=== PATIENT | male | born 1945 | race Caucasian/White ===

== ENCOUNTER → 2018-02-28 09:43 | Outpatient (CLI) | payer MEDICARE, SELFPAY ==
[2018-02-28 11:06] LABS: Thyroid Stim Hormone (TSH) 1.27 uIU/mL (0.358-3.74)
== END ==
PROVIDERS: Family Provider Family Medicine; PCP Family Medicine; Visit Provider Internal Medicine Cardiovascular Disease
DX: I10 Essential (primary) hypertension (principal)
CPT/HCPCS: 36415; 84443

== ENCOUNTER 2019-08-01 15:47 | Emergency (ER) | payer MEDICARE, SELFPAY ==
[2019-03-27 08:47] VITALS: BMI 43.1
[2019-08-01 15:48] VITALS: BP 181/82; PULSE 79; RESP 18; TEMP 36.3; O2SAT 97; BMI 41.2
--- NOTE | 2019-08-01 16:03 | RAD_ITS ---
STUDY: X-RAY - RIGHT KNEE REASON FOR EXAM: Male, 74 years old. Post traumatic pain TECHNIQUE: 4 view(s) of the knee. COMPARISON: None. FINDINGS: Stable appearance to knee prosthesis. No evidence for acute fracture or dislocation. Prepatellar soft tissue swelling is noted as well as a small suprapatellar bursal effusion RAD/Knee 4 or More Views IMPRESSION: Stable appearance to knee prosthesis without evidence for acute fracture Electronically Signed: David Epperson MD at 16:32 EDT , Service support ,
--- NOTE | 2019-08-01 16:07 | ED.DCSUM_ITS ---
- ER Visit Summary Date of Service: 08/01/19 Chief Complaint: Right knee injury History of Present Illness: The patient is a 74 M past male history of A. fib and prior prostate cancer. Bilateral knee replacements. 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 He was out mending some fence when his left foot slipped in the mud causing him to twist his right knee and go down to the ground. He denies any other injuries. Denies any LOC. Planing of pain to his right knee and unable to bend it. Did not hit his head. He is not on blood thinners. He did not hit his head. Physical Examination: Older male no acute distress vital signs stable afebrile. HEENT exam unremarkable. Atraumatic. Neck nontender. Lungs clear to auscultation bilaterally. Heart regular rhythm no murmur. Abdomen soft nontender normal bowel sounds no peritoneal signs. Pelvic girdle intact. Left lower extremity both upper extremities are nontender normal range of motion no deformity. Neurovascular intact. His right hip, right ankle and foot are nontender neurovascular intact with normal dorsi plantar flexion. Normal touch sensation. His right knee appears to be deformed. He is unable to flex his right knee due to pain. There is not significant swelling. There is no significant effusion. Neurologically is awake and alert. Test Results: Right knee x-ray 4 views read by myself and radiologist shows no acute ab normality. No fracture. No dislocation. Emergency Department Course and Treatment: Patient may either have a dislocated patella or knee. X-rays are being obtained. At this time he does not want anything for pain. Repeat exam patient is doing well at 1650. He has better range movement now to his right knee. Is not nearly as tender. He still has some swelling of the soft tissue superior and lateral to the patella. The patella appears to be in the appropriate position. He feels much better. Treatment Plan: Ice. Elevate. Anti-inflammatories. He has appointment to see his primary care physician next Tuesday they will determine at that time if he is not improving he may need an MRI but if it continues to get better they do conservative therapy. Disposition: Discharge Impression: Acute right knee soft tissue injury (sprain) This note was generated with [employer] software. It may contain incorrect words, spelling, and punctuation that were not noted in review of the chart prior to signing ED Disposition - Plan for ED Patient: Referrals: Jameson Hanson MD [Primary Care Provider] -
--- NOTE | 2019-08-01 16:58 | ED.DEP ---
ED Disposition - Plan for ED Patient: Disposition: Home or Assisted Living Instructions: Knee Sprain Referrals: Jameson Hanson MD [Primary Care Provider] - Keep Juan appointment Additional Instructions: Ice and elevate right knee. Motrin for pain and inflammation. Follow-up with your doctor the scheduled appointment. If this is not improving you may need an MRI but is not a continues to get better with less pain and swelling. This may completely resolve on its own. You have no fracture or dislocation at this time.
== END 2019-08-01 17:42 | disposition home or self-care (01) ==
PROVIDERS: Emergency Provider Emergency Medicine; Family Provider Family Medicine; PCP Family Medicine
DX: S83.91XA Sprain of unspecified site of right knee, initial encounter (principal); W01.0XXA Fall on same level from slipping, tripping and stumbling without subsequent striking against object, initial encounter; Y93.9 Activity, unspecified; Y92.9 Unspecified place or not applicable; I48.91 Unspecified atrial fibrillation; Z85.46 Personal history of malignant neoplasm of prostate; Z96.653 Presence of artificial knee joint, bilateral; Z79.82 Long term (current) use of aspirin; Z79.899 Other long term (current) drug therapy
CPT/HCPCS: 73564; 99282

== ENCOUNTER → 2020-09-01 13:24 | Outpatient (CLI) | payer MEDICARE, SELFPAY ==
[2020-03-25 07:45] VITALS: BMI 38.7
--- NOTE | 2020-09-01 13:27 | ECHOCS_ITS ---
Reason For Study: AFib Procedure This was a 2D Doppler, Color Flow transthoracic echocardiogram. Technically difficult study due to patients body habitus. Contrast injection was performed. Exam performed in department. Left Ventricle Normal LV size. Severe concentric left ventricular hypertrophy. Left ventricular systolic function is normal. The estimated ejection fraction is 65 %. No regional wall motion abnormalities noted. Right Ventricle Normal RV size. Normal systolic function. Atria Normal left atrium. Normal right atrium. Mitral Valve Normal mitral valve. Tricuspid Valve The tricuspid valve is not well visualized. Aortic Valve The aortic valve is not well visualized. Pulmonic Valve The pulmonic valve is not well visualized. Great Vessels Normal aortic root. Pericardium/Pleural No pericardial effusion. Medication 22 gauge I.V. with prn adaptor inserted into left arm. Diluted definity 2ml given slow IV push to enhance endocardial definition. MMode/2D Measurements & Calculations LVIDd: 5.5 cm IVSd: 1.8 cm LAV(MOD-sp4): 57.3 ml LVIDs: 3.7 cm LVPWd: 1.7 cm FS: 33.0 % LA A4 area: 19.7 cm2 RA A4 area: 15.3 cm2 Time Measurements MV dec time: 0.33 sec Doppler Measurements & Calculations MV E max bryce: 58.0 cm/sec Lat Peak E' Bryce: 7.4 cm/sec Med Peak E' Bryce: 6.8 cm/sec MV A max bryce: 76.3 cm/sec E/E' lat: 7.9 E/E' med: 8.6 MV E/A: 0.76 MV V2 max: 98.2 cm/sec MV P1/2t max bryce: 77.0 cm/sec Ao V2 max: 152.2 cm/sec MV max P.9 mmHg MV P1/2t: 71.4 msec Ao max P.3 mmHg MV V2 mean: 46.2 cm/sec MV dec slope: 316.2 cm/sec2 MV mean P.1 mmHg MV V2 VTI: 26.5 cm MVA(P1/2t): 3.1 cm2 LV V1 max: 115.0 cm/sec PA V2 max: 85.7 cm/sec LV V1 max P.3 mmHg Interpretation Summary Normal LV size. Left ventricular systolic function is normal. The estimated ejection fraction is 65 %. Severe concentric left ventricular hypertrophy. Contrast injection was performed. Ordering Physician: Martin Gill Referring Physician: Jameson Hanson Performed By: Rayo Alonso RCS
== END ==
PROVIDERS: PCP Family Medicine; Referring Provider Internal Medicine Pulmonary Disease; Visit Provider Internal Medicine Pulmonary Disease
DX: G47.33 Obstructive sleep apnea (adult) (pediatric) (principal); I48.91 Unspecified atrial fibrillation
CPT/HCPCS: 93306; Q9957; A4216; C8929

== ENCOUNTER → 2021-02-12 15:14 | Outpatient (CLI) | payer MEDICARE, SELFPAY ==
[2021-01-16 08:20] VITALS: BMI 42.0
--- NOTE | 2021-02-12 15:18 | RAD_ITS ---
STUDY: X-RAY CHEST REASON FOR EXAM: Male, 75 years old. DYSPNEA TECHNIQUE: 1 view COMPARISON: None. FINDINGS: Minimal transverse areas of linear density in the left lung base and mid left lung. Negative for major consolidation or other infiltrates. Negative for substantial pleural effusion. Normal size heart. Normal mediastinum and shanice. Normal visualized pulmonary arteries. There is atherosclerotic calcification of the aortic arch with tortuosity. There are diffuse degenerative changes of the visualized thoracic spine. Normal visualized ribs, clavicles, and shoulders. There is no demonstrated abnormality of the visualized soft tissue structures of the upper abdomen. RAD/Chest PA and Lateral IMPRESSION: Minimal transverse linear opacities in the left mid lung and left lung base consistent with platelike atelectasis or fibrotic changes. Negative for other acute cardiopulmonary findings. Electronically Signed: Devi Moody MD at 15:58 EDT , Service support ,
== END ==
PROVIDERS: PCP Family Medicine; Referring Provider Internal Medicine Pulmonary Disease; Visit Provider Internal Medicine Pulmonary Disease
DX: R06.00 Dyspnea, unspecified (principal)
CPT/HCPCS: 71046

== ENCOUNTER → 2023-12-16 | Outpatient (CLI) | payer MEDICARE, SELFPAY ==
--- NOTE | 2023-12-16 16:10 | RAD_ITS ---
INDICATION: SOB EXAMINATION/TECHNIQUE: X-RAY - XR Chest 2 Views COMPARISON: 02/12/2021 FINDINGS: Streaky opacities in the bilateral lung bases. Tortuous and calcified thoracic aorta. The heart is borderline enlarged. No pleural effusion or pneumothorax. Degenerative changes of the thoracic spine. RAD/Chest PA and Lateral IMPRESSION: Streaky bibasilar opacities may represent atelectasis versus infection. Electronically Signed: Andrzej Palacios MD at 16:43 EST ,
== END | disposition home or self-care (01) ==
LOC: MTRAD 16:09
PROVIDERS: PCP Family Medicine; Referring Provider Internal Medicine Pulmonary Disease; Visit Provider Internal Medicine Pulmonary Disease
DX: R06.02 Shortness of breath (principal)
CPT/HCPCS: 71046

== ENCOUNTER → 2024-01-05 | Outpatient (CLI) | payer MEDICARE, SELFPAY ==
--- OUTSIDE RECORDS SUMMARY | 2024-01-05 07:25 | XMS RPT_ITS | CCD ---
Author Name Unknown Address [address] [place] [address] Organization [facility] Care Team Providers Care Welder/Fitter Name Role Phone Marie Ruiz Unavailable Unavailable Marie Ruiz Unavailable Unavailable MiaTye castanoril S Unavailable Jameson Martinez MD Primary Care Provider Martin Costa Unavailable Harshil Roldan Unavailable [phone] Ottoniel Sam Unavailable JAMESON MARTINEZ MD Primary Care Physician DR FELICITY NICHOLAS MD Attending UnavailJAMESON Landers MD Primary Care Unavailable DR LINUS HUNTLEY DO Attending Unavailable JAMESON MARTINEZ MD Primary Care Unavailable JAMESON MARTINEZ MD Primary Care Unavailable JAMESON MARTINEZ MD Attending Unavailable JAMESON MARTINEZ MD Attending Unavailable JAMESON MARTINEZ MD Primary Care Unavailable JAMESON MARTINEZ MD Primary Care Unavailable JAMESON MARTINEZ MD Attending Unavailable Allergies Allergy Classification Reported Allergen(s) Allergy Type Date of Onset Reaction(s) Facility (14 sources) doxycycline; Translations: [DORYX] Drug Allergy 6 rash [facility] Work Phone: (4 sources) Sulfonamides (Antibiotic); Translations: [SULFA] allergy to substance 6 rash [facility] Work Phone: (9 sources) Sulfonamides (Antibiotic); Translations: [sulfa drugs] Drug Allergy 6 Rash [facility] Work Phone: (2 sources) Sulfonamides (Antibiotic); Translations: [sulfa drugs] Drug allergy Rash [facility] NEGATED: Highlighted row has been ruled out! (2 sources) Observed no known allergies at [facility] No Known Allergies 7 propensity to adverse reactions [facility] Work Phone: Medications Current Medications Medication Drug Class(es) Dates Sig (Normalized) Sig (Original) amoxicillin 875 mg / clavulanate 125 mg oral tablet (2 sources) Penicillin-class Antibacterial Start: 04-13-2023 End: 04-23-2023 take 1 tablet by mouth every twelve hours amoxicillin-clav ulanate 875 mg-125 mg oral tablet 1 tab(s), Oral, q12h, X 10 day(s), # 20 tab(s), 0 Refill(s), 04/23/23 10:08:00 EDT, Pharmacy: [facility]/pharmacy #[id number], Type 2 diabetes mellitus Prostate cancer, 181, cm, 04/13/23 9:16:00 EDT, Height, 153.8 Start Date: 04/13/23 Stop Date: 04/23/23 Status: Ordered aspirin 81 mg delayed release oral tablet (13 sources) Platelet Aggregation Inhibitor, Nonsteroidal Anti-inflammatory Drug Start: 06-13-2019 aspirin 81 mg oral delayed release tablet Dose : 81 mg = 1 tab(s), Oral, qDay, # 30 tab(s), 0 Refill(s) Start Date: 06/13/19 Status: Ordered Completed/Discontinued Medications Medication Drug Class(es) Dates Sig (Normalized) Sig (Original) [id number] actuat albuterol 0.09 mg/actuat metered dose inhaler (1 source) beta2-Adrenergic Agonist take 2 puff(s) by inhalation every six hours as needed for wheezing albuterol HFA (PROVENTIL HFA) 90 mcg/actuation inhaler Inhale 2 Puffs as instructed every 6 hours as needed for wheezing/shortness of breath. 0 Active Problems Active Problems Problem Classification Problem Date Documented Date Episodic/Chronic Cancer of prostate (15 sources) Malignant tumor of prostate; Translations: [Malignant neoplasm of prostate] Onset: 12-01-2016 12-01-2016 Chronic Cardiac dysrhythmias (20 sources) Unspecified atrial flutter; Translations: [Permanent atrial fibrillation ] Onset: 08-03-2016 12-01-2016 Chronic Cardiac dysrhythmias (13 sources) Palpitations; Translations: [Palpitations] Onset: 07-02-2021 Episodic Diabetes mellitus without complication (10 sources) Type 2 diabetes mellitus; Translations: [Type 2 diabetes mellitus without complications] Onset: 04-13-2023 10-16-2021 Chronic Disorders of lipid metabolism (15 sources) Hyperlipidemia; Translations: [Hyperlipidemia, unspecified] Onset: 08-04-2016 08-04-2016 Chronic Essential hypertension (14 sources) Hypertensive disorder; Translations: [Benign hypertension] Onset: 08-03-2016 08-03-2016 Chronic Hyperplasia of prostate (11 sources) Benign prostatic hyperplasia; Translations: [Benign prostatic hyperplasia without lower urinary tract symptoms] Onset: 07-02-2021 07-02-2021 Chronic Other and ill-defined heart disease (2 sources) Left ventricular hypertrophy; Translations: [Cardiomegaly] Chronic Other hereditary and degenerative nervous system conditions (11 sources) Restless legs; Translations: [Restless legs syndrome] Onset: 07-02-2021 07-02-2021 Chronic Other nutritional; endocrine; and metabolic disorders (2 sources) Body mass index (BMI) 40.0-44.9, adult; Translations: [Body mass index (BMI) 40.0-44.9, adult] Onset: 02-08-2017 02-08-2017 Chronic Other nutritional; endocrine; and metabolic disorders (2 sources) Body mass index 40+ - severely obese; Translations: [Morbid (severe) obesity due to excess calories] Onset: 07-02-2021 Chronic Other nutritional; endocrine; and metabolic disorders (2 sources) Morbid obesity 07-11-2023 Chronic Other upper respiratory disease (11 sources) Allergic rhinitis; Translations: [Allergic rhinitis, unspecified] Onset: 07-02-2021 07-02-2021 Chronic Residual codes; unclassified (2 sources) Other specified personal risk factors, not elsewhere classified; Translations: [Other specified personal history presenting hazards to health] Episodic Residual codes; unclassified (2 sources) At risk of hemorrhage; Translations: [Other specified personal risk factors, not elsewhere classified] Episodic Skin and subcutaneous tissue infections (4 sources) Cellulitis of lower limb 04-13-2023 Episodic Spondylosis; intervertebral disc disorders; other back problems (1 source) Degeneration of lumbar intervertebral disc; Translations: [Other intervertebral disc degeneration, lumbar region] Chronic Spondylosis; intervertebral disc disorders; other back problems (16 sources) Lumbago with sciatica; Translations: [Backache] Onset: 10-05-2023 08-07-2019 Episodic Unclassified (2 sources) Long-term drug therapy; Translations: [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 inspector (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) drug therapy] Onset: 08-04-2016 08-04-2016 Past or Other Problems Problem Classification Problem Date Documented Date Episodic/Chronic Conditions associated with dizziness or vertigo (8 sources) Lightheadedness; Translations: [Dizziness and giddiness] Onset: 08-03-2016 Resolved: 08-04-2016 08-04-2016 Episodic Other screening for suspected conditions (not mental disorders or infectious disease) (2 sources) Electrocardiogram abnormal; Translations: [Abnormal electrocardiogram [ECG] [EKG]] Onset: 08-05-2016 08-05-2016 Episodic Results Test Name Value Interpretation Reference Range Facil ity Vital Signs Date Time Vital Sign Value Performing Clinician Facility 07-11-2023 08:55-0400 Diastolic Blood Pressure Non-Invasive [address] FELICITY NICHOLAS MD [facility] 07-11-2023 08:55-0400 Heart rate 63 /min DR FELICITY NICHOLAS MD [facility] 07-11-2023 08:55-0400 Respiratory rate 19 /min DR FELICITY NICHOLAS MD [facility] 07-11-2023 08:55-0400 Systolic Blood Pressure Non-Invasive [address] FELICITY NICHOLAS MD [facility] 07-11-2023 08:39-0400 Body temperature 96.98 [degF] DR FELICITY NICHOLAS MD [facility] 07-11-2023 08:39-0400 Diastolic Blood Pressure Non-Invasive [address] FELICITY NICHOLAS MD [facility] 07-11-2023 08:39-0400 Heart rate 60 /min DR FELICITY NICHOLAS MD [facility] 07-11-2023 08:39-0400 Respiratory rate 16 /min DR FELICITY NCIHOLAS MD [facility] 07-11-2023 08:39-0400 Systolic Blood Pressure Non-Invasive [address] FELICITY NICHOLAS MD [facility] 07-11-2023 08:35-0400 Heart rate 61 /min DR FELICITY NICHOLAS MD [facility] 07-11-2023 08:35-0400 Respiratory Rate - Anes 14 br/min DR FELICITY NICHOLAS MD [facility] 07-11-2023 08:30-0400 Diastolic Blood Pressure Non-Invasive [address] FELICITY NICHOLAS MD [facility] 07-11-2023 08:30-0400 Respiratory Rate - Anes 28 br/min DR FELICITY NICHOLAS MD [facility] 07-11-2023 08:30-0400 Systolic Blood Pressure Non-Invasive [address] FELICITY NICHOLAS MD [facility] 07-11-2023 08:25-0400 Respiratory Rate - Anes 22 br/min DR FELICITY NICHOLAS MD [facility] 07-11-2023 07:27-0400 Body height 180.[address] FELICITY NICHOLAS MD [facility] 07-11-2023 07:27-0400 Body temperature 97.52 [degF] DR FELICITY NICHOLAS MD [facility] 07-11-2023 07:27-0400 Body weight 154.[address] FELICITY NICHOLAS MD [facility] 07-11-2023 07:27-0400 Heart rate 57 /min DR FELICITY NICHOLAS MD [facility] 07-11-2023 07:27-0400 Respiratory rate 18 /min DR FELICITY NICHOLAS MD [facility] 04-19-2023 22:30-0400 Diastolic Blood Pressure Non-Invasive [address] LINUS HUNTLEY DO [facility] 04-19-2023 22:30-0400 Heart rate 65 /min DR LINUS HUNTLEY DO [facility] 04-19-2023 22:30-0400 Respiratory rate 16 /min DR LINUS HUNTLEY DO [facility] 04-19-2023 22:30-0400 Systolic Blood Pressure Non-Invasive [address] LINUS HUNTLEY DO [facility] 04-19-2023 18:35-0400 Body temperature 98.6 [degF] DR LINUS HUNTLEY DO [facility] 04-19-2023 18:35-0400 Body weight 155.[address] LINUS HUNTLEY DO [facility] 04-19-2023 18:35-0400 Diastolic Blood Pressure Non-Invasive [address] LINUS HUNTLEY DO [facility] 04-19-2023 18:35-0400 Heart rate 69 /min DR LINUS HUNTLEY DO [facility] 04-19-2023 18:35-0400 Respiratory rate 16 /min DR LINUS HUNTLEY DO [facility] 04-19-2023 18:35-0400 Systolic Blood Pressure Non-Invasive [address] LINUS HUNTLEY DO [facility] 07-02-2021 14:15-0400 Body height 185.4 cm Martin Tovar MD Work Phone: [facility] 07-02-2021 14:15-0400 Body weight 157.4 kg Martin Tovar MD Work Phone: [facility] 07-02-2021 14:15-0400 Diastolic blood pressure 72 mm[Hg] Martin Tovar MD Work Phone: [facility] 07-02-2021 14:15-0400 Heart rate 64 /min Martin Tovar MD Work Phone: [facility] 07-02-2021 14:15-0400 SaO2% (BldA) [Mass fraction] 94 % Martin Tovar MD Work Phone: [facility] 07-02-2021 14:15-0400 Systolic blood pressure 142 mm[Hg] Martin Tovar MD Work Phone: [facility] 08-22-2017 09:51-0400 BMI (Body Mass Index) 44.07 kg/m2 Marie Landinby [facility] Work Phone: 08-22-2017 09:51-0400 BP Diastolic 68 mm[Hg] [facility] Work Phone: 08-22-2017 09:51-0400 BP Systolic 126 mm[Hg] [facility] Work Phone: 08-22-2017 09:51-0400 Height 182.88 cm [facility] Work Phone: 08-22-2017 09:51-0400 Pulse (Heart Rate) 64 /min Marieamanda [facility] Work Phone: 08-22-2017 09:51-0400 Respiratory Rate 18 /min Marie Schaffer Work Phone: 08-22-2017 09:51-0400 Weight 147.42 kg [facility] Work Phone: 12-07-2016 12:08-0500 BSA (Body Surface Area) 2.61 m2 Marie Schaffer Work Phone: 12-07-2016 10:44-0500 Heart rate 71 /min Marie [facility] Work Phone: Encounters Encounter Date Encounter Type Care Provider Facility Start: 10-05-2023 End: 10-10-2023 ambulatory JAMESON MARTINEZ MD Facility:[facility] Start: 10-05-2023 End: 10-09-2023 Outreach Lab JAMESON MARTINEZ MD [facility] Start: 07-11-2023 End: 07-11-[address] FELICITY NICHOLAS MD Facility:[facility] Start: 07-11-2023 End: 07-11-[address] FELICITY NICHOLAS MD [facility] Start: 04-19-2023 End: 04-20-2023 Emergency department patient visit DR LINUS HUNTLEY DO Facility:[facility] Start: 04-19-2023 End: 04-19-2023 Emergency department patient visit DR LINUS HUNTLEY DO [facility] Start: 04-13-2023 End: 04-18-2023 ambulatory JAMESON MARTINEZ MD Facility:[facility] Start: 04-13-2023 End: 04-17-2023 Outreach Lab JAMESON MARTINEZ MD [facility] Start: 04-06-2023 End: 04-11-2023 ambulatory JAMESON MARTINEZ MD Facility:[facility] Start: 10-06-2022 End: 10-10-2022 Outreach Lab JAMESON MARTINEZ MD [facility] Start: 08-24-2022 End: 10-12-[address] FELICITY CRAMER DO [facility] Start: 04-05-2022 End: 04-05-2022 Patient encounter procedure JAMESON MARTINEZ MD [facility] Start: 09-28-2021 End: 09-28-2021 Patient encounter procedure JAMESON MARTINEZ MD [facility] Start: 07-02-2021 End: 07-02-2021 Patient encounter procedure Martin Tovar MD Work Phone: [facility] Cardiology [place] Procedures Date Procedure Procedure Detail Performing Clinician Start: 07-02-2021 Ecg routine ecg w/le ast 12 lds w/i&r Martin Tovar MD Work Phone: Start: 08-22-2017 End: 08-22-2017 SAURABH Easley PA-C Work Phone: Start: 08-22-2017 End: 08-22-2017 Follow Up Appt 6 months Shellie garza PA-C Work Phone: Start: 02-08-2017 End: 02-08-2017 Follow Up Appt 6 months Dayami Mae Start: 02-08-2017 End: 02-08-2017 CHI Bellamy MD Start: 12-07-2016 End: 08-15-2017 SAURABH Bellamy MD Start: 12-07-2016 End: 08-15-2017 Ecg routine ecg w/least 12 lds w/i&r Pete Bellamy MD Start: 12-07-2016 End: 12-07-2016 Follow Up Appt 3 months Dayami Mae Start: 12-07-2016 End: 08-15-2017 Follow Up Appt 4 months Dayami Mae Start: 12-07-2016 End: 12-07-2016 MMM Pete Bellamy MD Start: 08-04-2016 End: 08-04-2016 MEDICAL PHYSICS TEACHER Pete Bellamy MD Start: 08-04-2016 End: 08-04-2016 Ecg routine ecg w/least 12 lds w/i&r Pete Bellamy MD Start: 08-04-2016 End: 09-02-2016 Echocardiography Pete Bellamy MD Start: 08-04-2016 End: 08-04-2016 Follow Up Appt 6 months Dayami Mae Start: 04-01-2014 History of right tot al knee replacement DR HARSHIL ROLDAN MD Plan of Treatment Date Care Activity Detail Author Start: 07-01-2021 Influenza vaccination INFLUENZA (#1) [facility] Start: 02-28-2018 End: 02-28-2018 Appointment Appointment [facility] Work Phone: Start: 08-22-2017 End: 08-22-2017 MEDICAL PHYSICS TEACHER MEDICAL PHYSICS TEACHER [facility] Work Phone: Start: 08-22-2017 End: 08-22-2017 Follow Up Appt 6 months Follow Up Appt 6 months [facility] Work Phone: Start: 08-22-2017 End: 08-22-2017 Appointment Appointment [facility] Work Phone: Start: 02-08-2017 End: 02-08-2017 Follow Up Appt 6 months Follow Up Appt 6 months [facility] Work Phone: Start: 02-08-2017 End: 02-08-2017 MMM MMM [facility] Work Phone: Start: 12-07-2016 End: 08-15-2017 MEDICAL PHYSICS TEACHER MEDICAL PHYSICS TEACHER [facility] Work Phone: Start: 12-07-2016 End: 08-15-2017 Ecg routine ecg w/least 12 lds w/i&r EKG (In office) [facility] Work Phone: Start: 12-07-2016 End: 12-07-2016 Follow Up Appt 3 months Follow Up Appt 3 months [facility] Work Phone: Start: 12-07-2016 End: 08-15-2017 Follow Up Appt 4 months Follow Up Appt 4 months [facility] Work Phone: Start: 12-07-2016 End: 12-07-2016 MMM MMM [facility] Work Phone: Start: 08-04-2016 End: 08-04-2016 MEDICAL PHYSICS TEACHER MEDICAL PHYSICS TEACHER [facility] Work Phone: Start: 08-04-2016 End: 08-04-2016 Ecg routine ecg w/least 12 lds w/i&r EKG (In office) [facility] Work Phone: Start: 08-04-2016 End: 08-04-2016 Echocardiography Echocardiogram (complete) [facility] Work Phone: Start: 08-04-2016 End: 08-04-2016 Follow Up Appt 6 months Follow Up Appt 6 months [facility] Work Phone: Start: 07-22-2015 Urine microalbumin profile DTAP,TDAP,TD (2 - Tdap) [facility] Start: 2009 ADVANCE DIRECTIVE DISCUSSION ADVANCE DIRECTIVE DISCUSSION [facility] Start: 1994 SHINGRIX VACCINE (1 of 2) SHINGRIX VACCINE (1 of 2) [facility] Start: 1989 DIABETES SCREEN DIABETES SCREEN [facility] Start: 1962 HEPATITIS C SCREENING HEPATITIS C SCREENING [facility] Start: 1956 Adult depression screening assessment DEPRESSION SCREENING [facility] Immunizations Immunization Date Immunization Notes Care Provider Fa cility 10-21-2021 COVID-19, mRNA, LNP- S, PF, 100 mcg or 50 mcg dose; Translations: [Moderna COVID-19 Vaccine] JAMESON MARTINEZ MD [facility] 01-05-2021 COVID-19 vaccine (MODERNA); Translations: [Moderna COVID-19 Vaccine] Martin Tovar MD Work Phone: [facility] 12-08-2020 COVID-19 vaccine (MODERNA) Martin Tovar MD Work Phone: [facility] 05-10-2017 pneumococcal conjuga te vaccine, 13 valent Martin Tovar MD Work Phone: [facility] 03-31-2012 pneumococcal polysaccharide vaccine, 23 valent Martin Tovar MD Work Phone: [facility] 01-14-2006 pneumococcal polysaccharide vaccine, 23 valent Martin Tovar MD Work Phone: [facility] 07-22-2005 diphtheria and tetan us toxoids, adsorbed for pediatric use Martin Tovar MD Work Phone: [facility] Payers Date Payer Category Payer Private Health Insurance [id number] 2020 Medicare AETNA MEDICARE A ETNA MEDICARE PPO [id number] 2020-Present PPO [id number] 1944 Unknown [id number] 1945 Unknown [id number] 1944 Unknown [id number] 1945 Unknown [id number] 1945 Unknown [id number] Social History Date Type Detail Facility Start: 08-07-2019 End: 07-02-2021 Tobacco smoking status NHIS Never smoker [facility] Start: 07-02-2021 Tobacco use and exposure Never used [facility] Start: 07-02-2021 Alcohol intake Lifetime non-d ritika (finding) [facility] Start: 06-19-2021 History SDOH Alcohol Frequency 1 [facility] Start: 1945 [facility]igned At [facility] Exposure to SARS-CoV -2 (event) Not sure [facility] Sex Assigned At Male [facility] Functional Status Date Assessment Result Facility 07-11-2023 Functional Status Repositioned back [facility] 07-11-2023 Functional Status Maintained [facility] 04-19-2023 Functional Status Ambulating in delvalle, Ambulating in room, Awake, Bathroom privileges [facility] 04-19-2023 Functional Status Standard Safet y ID band on, Allergy Band on, Call device within reach, Bed in low position, Wheels locked, Upper/Half-Length side-rails up, personal items within reach, Visitor at bedside [facility] Mental Status Date Assessment Result Facility 07-11-2023 Mental Status Oriented x 4 [facility] 07-11-2023 Mental Status [facility] 04-19-2023 Mental Status Orientation Oriented x 4 [facility] 04-19-2023 Mental Status [facility] Clinical Notes 07-02-2021 to 07-11-2023 Patient Martin Hudson MD - 07/02/2021 2:20 PM Perla Olmedo MA - 07/02/2021 2:18 PM EDTLaboratory Note Date & Type Note Facility 07-11-2023 Hospital Discharge instructions Patient Education 07/11/2023 09:06:09 9 - AO Minor Esophagogastroduodenoscopy (01/11)(CUSTOM) Esophagogastroduodenoscopy This is an endoscopic procedure (a procedure that uses a device like a flexible telescope) that allows your caregiver to view the upper stomach and small bowel. This test allows your caregiver to look at the esophagus. The esophagus carries food from your mouth to your stomach. They can also look at your duodenum. This is the first part of the small intestine that attaches to the stomach. This test is used to detect problems in the bowel such as ulcers and inflammation. MEANING OF TEST Your caregiver will go over the test results with you and discuss the importance and meaning of your results, as well as treatment options and the need for additional tests if necessary. OBTAINING THE TEST RESULTS Your caregiver s office will call you with the results of the test. POST SEDATION INSTRUCTIONS Rest at home today. Since your coordination may be impaired, be cautious on stairways, do not drive any vehicle or operate any heavy machinery, or use any sharp instruments for the remainder of the day. Do not drink any alcoholic beverages or make any major decisions for 24 hours. POST PROCEDURE INSTRUCTIONS Progress slowly with full liquids then resume previous diet and medications. Belching or passing of gas is to be expected. Notify the physician if you have severe chest pain, fever, or if difficulty when swallowing persists. 01/08/14 Custom 07/11/2023 09:05:07 Esophageal Dilatation Esophageal Dilatation Esophageal dilatation, also called esophageal dilation, is a procedure to widen or open (dilate) a blocked or narrowed part of the esophagus. The esophagus is the part of the body that moves food and liquid from the mouth to the stomach. You may need this procedure if: You have a buildup of scar tissue in your esophagus that makes it difficult, painful, or impossible to swallow. This can be caused by gastroesophageal reflux disease (GERD). You have cancer of the esophagus. There is a problem with how food moves through your esophagus. In some cases, you may need this procedure repeated at a later time to dilate the esophagus gradually. Tell a health care provider about: Any allergies you have. All medicines you are taking, including vitamins, herbs, eye drops, creams, and [id number] medicines. Any problems you or family members have had with anesthetic medicines. Any blood disorders you have. Any surgeries you have had. Any medical conditions you have. Any antibiotic medicines you are required to take before dental procedures. Whether you are or may be . What are the risks? Generally, this is a safe procedure. However, problems may occur, including: Bleeding due to a tear in the lining of the esophagus. A hole (perforation) in the esophagus. What happens before the procedure? Follow instructions from your health care provider about eating or drinking restrictions. Ask your health care provider about changing or stopping your regular medicines. This is especially important if you are taking diabetes medicines or blood thinners. Plan to have someone take you home from the hospital or clinic. Plan to have a responsible adult care for you for at least 24 hours after you leave the hospital or clinic. This is important. What happens during the procedure? You may be given a medicine to help you relax (sedative). A numbing medicine may be sprayed into the back of your throat, or you may gargle the medicine. Your health care provider may perform the dilatation using various surgical instruments, such as: ?Simple dilators. This instrument is carefully placed in the esophagus to stretch it. ?Guided wire bougies. This involves using an endoscope to insert a wire into the esophagus. A dilator is passed over this wire to enlarge the esophagus. Then the wire is removed. ?Balloon dilators. An endoscope with a small balloon at the end is inserted into the esophagus. The balloon is inflated to stretch the esophagus and open it up. The procedure may vary among health care providers and hospitals. What happens after the procedure? Your blood pressure, heart rate, breathing rate, and blood oxygen level will be monitored until the medicines you were given have worn off. Your throat may feel slightly sore and numb. This will improve slowly over time. You will not be allowed to eat or drink until your throat is no longer numb. When you are able to drink, urinate, and sit on the edge of the bed without nausea or dizziness, you may be able to return home. Follow these instructions at home: Take [id number] and prescription medicines only as told by your health care provider. Do not drive for 24 hours if you were given a sedative during your procedure. You should have a responsible adult with you for 24 hours after the procedure. Follow instructions from your health care provider about any eating or drinking restrictions. Do not use any products that contain nicotine or tobacco, such as cigarettes and e-cigarettes. If you need help quitting, ask your health care provider. Keep all follow-up visits as told by your health care provider. This is important. Get help right away if you: Have a fever. Have chest pain. Have pain that is not relieved by medication. Have trouble breathing. Have trouble swallowing. Vomit blood. Summary Esophageal dilatation, also called esophageal dilation, is a procedure to widen or open (dilate) a blocked or narrowed part of the esophagus. Plan to have someone take you home from the hospital or clinic. For this procedure, a numbing medicine may be sprayed into the back of your throat, or you may gargle the medicine. Do not drive for 24 hours if you were given a sedative during your procedure. This information is not intended to replace advice given to you by your health care provider. Make sure you discuss any questions you have with your health care provider. Document Released: 12/08/2006 Document Revised: 09/29/2018 Document Reviewed: 08/22/2018 [employer] Patient Education 2020 [employer]. 07/11/2023 09:03:35 Monitored Anesthesia Care, Care After Monitored Anesthesia Care, Care After These instructions provide you with information about caring for yourself after your procedure. Your health care provider may also give you more specific instructions. Your treatment has been planned according to current medical practices, but problems sometimes occur. Call your health care provider if you have any problems or questions after your procedure. What can I expect after the procedure? After your procedure, you may: Feel sleepy for several hours. Feel clumsy and have poor balance for several hours. Feel forgetful about what happened after the procedure. Have poor judgment for several hours. Feel nauseous or vomit. Have a sore throat if you had a breathing tube during the procedure. Follow these instructions at home: For at least 24 hours after the procedure: Have a responsible adult stay with you. It is important to have someone help care for you until you are awake and alert. Rest as needed. Do not: ?Participate in activities in which you could fall or become injured. ?Drive. ?Use heavy machinery. ?Drink alcohol. ?Take sleeping pills or medicines that cause drowsiness. ?Make important decisions or sign legal documents. ?Take care of children on your own. Eating and drinking Follow the diet that is recommended by your health care provider. If you vomit, drink water, juice, or soup when you can drink without vomiting. Make sure you have little or no nausea before eating solid foods. General instructions Take vizh-aix-yhaubzn and prescription medicines only as told by your health care provider. If you have sleep apnea, surgery and certain medicines can increase your risk for breathing problems. Follow instructions from your health care provider about wearing your sleep device: ?Anytime you are sleeping, including during daytime naps. ?While taking prescription pain medicines, sleeping medicines, or medicines that make you drowsy. If you smoke, do not smoke without supervision. Keep all follow-up visits as told by your health care provider. This is important. Contact a health care provider if: You keep feeling nauseous or you keep vomiting. You feel light-headed. You develop a rash. You have a fever. Get help right away if: You have trouble breathing. Summary For several hours after your procedure, you may feel sleepy and have poor judgment. Have a responsible adult stay with you for at least 24 hours or until you are awake and alert. This information is not intended to replace advice given to you by your health care provider. Make sure you discuss any questions you have with your health care provider. Document Released: 02/06/2017 Document Revised: 01/15/2019 Document Reviewed: 02/06/2017 [employer] Patient Education 2020 [employer] Follow Up Care 06/22/2023 14:36:04 With:FELICITY NICHOLAS Address: [address] [place] [phone] Business (1) When: Unknown Comments:Let DR. Nicholas know if you are not doing better. [facility] 07-11-2023 Note Discharge Instructions Thank you for allowing [facility] to assist you with your healthcare needs. The following is important discharge information regarding your hospital visit. Your Care Team JAMESON MARTINEZ MD What to do next Scheduled Follow-Up Appointments Appointment Type When With Where Contact Information Nurse Lab 10/05/2023 09:15 AM [facility] Eric OV 10/12/2023 09:30 AM JAMESON HERRERA MD [facility] Eric Follow Up Appointments Follow Up with FELICITY NICHOLAS When Why: Let DR. Nicholas know if you are not doing better. Where: [address] [place] [address]- [phone] Business (1) The Following Activity and Diet Have Been Ordered for You Discharge Activity - Ordered -- NO activity restrictions, 07/11/23 8:39:00 EDT Discharge Diet - Ordered -- Follow the post-operative/post-procedure diet instructions provided by your physician's office., 07/11/23 8:39:00 EDT The Following Equipment Has Been Ordered for You Discharge Home Equipment Discharge Wound Care - Ordered -- Follow the post-operative/post-procedure wound care instructions provided by your physician's office., 07/11/23 8:39:00 EDT The Following Treatments Have Been Ordered for You Discharge Labs No qualifying data available. Discharge Radiology No qualifying data available. Other Therapies No qualifying data available. Post Acute Orders No qualifying data available. Someone Will Contact You Regarding These Home Health Referrals No home referrals have been ordered for you. No one will call you. Allergies Doryx (Rash) sulfa drugs (Rash) Medications Please ask your primary doctor or pharmacist before taking any other medication not listed, including over the counter drugs, herbal medications, vitamins and or supplements as they may interact with your home medications. What How Much When Why Instructions Last Dose Unchanged aspirin (aspirin 81 mg oral delayed release tablet) 1 tab(s) by mouth Once a day Unchanged dilTIAZem (DilTIAZem (Eqv-Cardizem CD) 120 mg/ 24 hours oral capsule, extended release) 1 cap by mouth Two (2) times a day Unchanged fluticasone nasal (Flonase 50 mcg/ inh nasal spray) 2 spray(s) each nostril Once a day Allergic rhinitis, mild Duration: 90 Days Uses name brand Flonase Unchanged fluticasone nasal (fluticasone proprionate NASAL 50 mcg/ spray) 2 spray(s) each nostril Once a day (in the morning) Duration: 30 Days Unchanged hydroCHLOROthiazide (hydroCHLOROthiazide 25 mg oral tablet) 1 tab(s) by mouth Once a day Unchanged latanoprost ophthalmic (latanoprost 0.005% ophthalmic solution) 1 Drops Both eyes Daily at bedtime Unchanged losartan (losartan 100 mg oral tablet) 1 tab(s) by mouth Once a day Unchanged rosuvastatin (rosuvastatin 5 mg oral tablet) 1 tab(s) by mouth Every day Unchanged timolol ophthalmic (timolol hemihydrate 0.25% ophthalmic solution) 1 Drops Both eyes Two (2) times a day Please take this list to your next doctor s visit. Bring all medications you take, including over the counter medications, herbals and other supplements with you to your doctor s visit. Patients and families are reminded to discard old lists and to update any records with all medication providers or retail pharmacies. Education Materials Esophagogastroduodenoscopy This is an endoscopic procedure (a procedure that uses a device like a flexible telescope) that allows your caregiver to view the upper stomach and small bowel. This test allows your caregiver to look at the esophagus. The esophagus carries food from your mouth to your stomach. They can also look at your duodenum. This is the first part of the small intestine that attaches to the stomach. This test is used to detect problems in the bowel such as ulcers and inflammation. MEANING OF TEST Your caregiver will go over the test results with you and discuss the importance and meaning of your results, as well as treatment options and the need for additional tests if necessary. OBTAINING THE TEST RESULTS Your caregiver s office will call you with the results of the test. POST SEDATION INSTRUCTIONS Rest at home today. Since your coordination may be impaired, be cautious on stairways, do not drive any vehicle or operate any heavy machinery, or use any sharp instruments for the remainder of the day. Do not drink any alcoholic beverages or make any major decisions for 24 hours. POST PROCEDURE INSTRUCTIONS Progress slowly with full liquids then resume previous diet and medications. Belching or passing of gas is to be expected. Notify the physician if you have severe chest pain, fever, or if difficulty when swallowing persists. 01/08/14 Custom Esophageal Dilatation Esophageal dilatation, also called esophageal dilation, is a procedure to widen or open (dilate) a blocked or narrowed part of the esophagus. The esophagus is the part of the body that moves food and liquid from the mouth to the stomach. You may need this procedure if: You have a buildup of scar tissue in your esophagus that makes it difficult, painful, or impossible to swallow. This can be caused by gastroesophageal reflux disease (GERD). You have cancer of the esophagus. There is a problem with how food moves through your esophagus. In some cases, you may need this procedure repeated at a later time to dilate the esophagus gradually. Tell a health care provider about: Any allergies you have. All medicines you are taking, including vitamins, herbs, eye drops, creams, and bbzd-xgo-dhgkbls medicines. Any problems you or family members have had with anesthetic medicines. Any blood disorders you have. Any surgeries you have had. Any medical conditions you have. Any antibiotic medicines you are required to take before dental procedures. Whether you are or may be . What are the risks? Generally, this is a safe procedure. However, problems may occur, including: Bleeding due to a tear in the lining of the esophagus. A hole (perforation) in the esophagus. What happens before the procedure? Follow instructions from your health care provider about eating or drinking restrictions. Ask your health care provider about changing or stopping your regular medicines. This is especially important if you are taking diabetes medicines or blood thinners. Plan to have someone take you home from the hospital or clinic. Plan to have a responsible adult care for you for at least 24 hours after you leave the hospital or clinic. This is important. What happens during the procedure? You may be given a medicine to help you relax (sedative). A numbing medicine may be sprayed into the back of your throat, or you may gargle the medicine. Your health care provider may perform the dilatation using various surgical instruments, such as: ? Simple dilators. This instrument is carefully placed in the esophagus to stretch it. ? Guided wire bougies. This involves using an endoscope to insert a wire into the esophagus. A dilator is passed over this wire to enlarge the esophagus. Then the wire is removed. ? Balloon dilators. An endoscope with a small balloon at the end is inserted into the esophagus. The balloon is inflated to stretch the esophagus and open it up. The procedure may vary among health care providers and hospitals. What happens after the procedure? Your blood pressure, heart rate, breathing rate, and blood oxygen level will be monitored until the medicines you were given have worn off. Your throat may feel slightly sore and numb. This will improve slowly over time. You will not be allowed to eat or drink until your throat is no longer numb. When you are able to drink, urinate, and sit on the edge of the bed without nausea or dizziness, you may be able to return home. Follow these instructions at home: Take enel-wgv-zhklmeb and prescription medicines only as told by your health care provider. Do not drive for 24 hours if you were given a sedative during your procedure. You should have a responsible adult with you for 24 hours after the procedure. Follow instructions from your health care provider about any eating or drinking restrictions. Do not use any products that contain nicotine or tobacco, such as cigarettes and e-cigarettes. If you need help quitting, ask your health care provider. Keep all follow-up visits as told by your health care provider. This is important. Get help right away if you: Have a fever. Have chest pain. Have pain that is not relieved by medication. Have trouble breathing. Have trouble swallowing. Vomit blood. Summary Esophageal dilatation, also called esophageal dilation, is a procedure to widen or open (dilate) a blocked or narrowed part of the esophagus. Plan to have someone take you home from the hospital or clinic. For this procedure, a numbing medicine may be sprayed into the back of your throat, or you may gargle the medicine. Do not drive for 24 hours if you were given a sedative during your procedure. This information is not intended to replace advice given to you by your health care provider. Make sure you discuss any questions you have with your health care provider. Document Released: 12/08/2006 Document Revised: 09/29/2018 Document Reviewed: 08/22/2018 [employer] Patient Education 2020 [employer] Monitored Anesthesia Care, Care After These instructions provide you with information about caring for yourself after your procedure. Your health care provider may also give you more specific instructions. Your treatment has been planned according to current medical practices, but problems sometimes occur. Call your health care provider if you have any problems or questions after your procedure. What can I expect after the procedure? After your procedure, you may: Feel sleepy for several hours. Feel clumsy and have poor balance for several hours. Feel forgetful about what happened after the procedure. Have poor judgment for several hours. Feel nauseous or vomit. Have a sore throat if you had a breathing tube during the procedure. Follow these instructions at home: For at least 24 hours after the procedure: Have a responsible adult stay with you. It is important to have someone help care for you until you are awake and alert. Rest as needed. Do not: ? Participate in activities in which you could fall or become injured. ? Drive. ? Use heavy machinery. ? Drink alcohol. ? Take sleeping pills or medicines that cause drowsiness. ? Make important decisions or sign legal documents. ? Take care of children on your own. Eating and drinking Follow the diet that is recommended by your health care provider. If you vomit, drink water, juice, or soup when you can drink without vomiting. Make sure you have little or no nausea before eating solid foods. General instructions Take zhxm-zsp-vkidspk and prescription medicines only as told by your health care provider. If you have sleep apnea, surgery and certain medicines can increase your risk for breathing problems. Follow instructions from your health care provider about wearing your sleep device: ? Anytime you are sleeping, including during daytime naps. ? While taking prescription pain medicines, sleeping medicines, or medicines that make you drowsy. If you smoke, do not smoke without supervision. Keep all follow-up visits as told by your health care provider. This is important. Contact a health care provider if: You keep feeling nauseous or you keep vomiting. You feel light-headed. You develop a rash. You have a fever. Get help right away if: You have trouble breathing. Summary For several hours after your procedure, you may feel sleepy and have poor judgment. Have a responsible adult stay with you for at least 24 hours or until you are awake and alert. This information is not intended to replace advice given to you by your health care provider. Make sure you discuss any questions you have with your health care provider. Document Released: 02/06/2017 Document Revised: 01/15/2019 Document Reviewed: 02/06/2017 [employer] Patient Education 2020 [employer] Additional Information VACCINATE! IT SAVES LIVES! Members of the community who have not yet received the COVID-19 vaccine and would like to receive it can visit one of [facility] vaccine clinics. There are many vaccine clinic locations within the [facility]. For locations and available times, please visit [email or web address] It is important to note that some COVID mobile vaccine clinics are held outdoors and may be canceled in rainy or stormy conditions. To learn more about pediatric vaccinations (ages 5-11), we invite you to visit the [facility] webpage. [email or web address]/[email or web address]-Gznfr-Hzqgbgttprd-Frequently-[email or web address] -Questions.html To learn more about the COVID-19 vaccine, we invite you to visit the CDC website for a list of frequently asked questions.https://www.cdc.gov/coronavi simon/2019-ncov/vaccines/faq.html [facility] Patient Portal Access Instructions: Stay connected with your healthcare team and access your personal medical information anytime with the [employer] Patient Portal. Please follow the directions below to create your [facility] account: 1.Access the email account you provided upon registration to the hospital/physician office.2.Look for an invitation email from [facility].3.Open the email and access the invitation link: Accept Invitation to [employer].4.Fill in the required herrera to create your account. To access your account, visit [employer]. Click the blue button labeled Access Patient Portal and then log in with the username and password that you created in the steps above. You will be able to view your test results, lab results, a summary of your visits, upcoming appointments and more. There is also a convenient messaging option where you can send secure messages to your provider. In addition, you will have the ability to download any documents or summaries to your computer and/or send the information securely to a physician. Remember that your healthcare information is confidential, so carefully consider who you will allow to register on the [facility] Patient Portal for access to your information. You can also access the [facility] Patient Portal on the [employer]celino. Simply click on Patient Portal and then log into your account. If you would like to receive a full copy of your medical records, please contact the [facility] Medical Records Department by calling [phone], Tuesday through Tuesday between 8 a.m. and 4:30 p.m. HOW TO SAFELY DISPOSE OF PRESCRIPTION MEDICATIONS Please use one of the following methods to safely dispose of your unused medications. 1.Use a drug disposal kit: the drug disposal pouch allows you to safely discard your old and unused drugs. Ask your nurse to give you one when you are discharged.2.Visit a local take-back location: Many local pharmacies and police departments have programs that collect old and unwanted prescription drugs. Call your local pharmacy or go to http://SPOTBY.COM.Carwow/2M9Eg5u to find one close to you.3.Make use of household items: Use cat litter or old coffee grounds to dispose medications if other options are not available. Mix your drugs with these household products, seal them in an airtight container and throw it into the garbage. Call [facility]: [phone] to be sure your drugs can be disposed of in this way. Some medicines may require a different approach.4.Never flush your medications down the toilet. IF YOU HAVE BEEN PRESCRIBED AN OPIOID FOR PAIN If you have been prescribed an opioid (such as hydrocodone, oxycodone or morphine), it is critical to understand the possible side effects and risks of opioid pain medications. Even when taken as directed, opioids can have several side effects including: Tolerance, meaning you might need to take more of a medication for the same pain relief. Nausea, vomiting and/or constipation. Sleepiness, dizziness, dry mouth, confusion, depression or itching. Physical dependence, meaning you have withdrawal symptoms when a medication is stopped, can develop within a few days. KNOW YOUR RESPONSIBILITIES It is important to know exactly how much and how often to take the opioid pain medications you are prescribed. Never take opioids in higher amounts or more often than prescribed. Do not combine opioids with alcohol or other drugs that cause drowsiness, such as benzodiazepines, also known as benzos, including diazepam and alprazolam, muscle relaxants or sleep aids. Never sell or share prescription opioids. This is illegal. Store opioids in a secure place and out of reach of others (including children, family, friends and visitors). The last page of this document has been signed and retained as a CHART COPY. Signatures Patient Education Materials 9 - AO Minor Esophagogastroduodenoscopy (01/11)(CUSTOM) Esophageal Dilatation Monitored Anesthesia Care, Care After Medication Leaflets My discharge plan and instructions have been reviewed and explained to me and I,ARUNA ESTRELLA understand my current condition and have read and understand these discharge instructions. I have received a written copy of the plan/instructions. If I have questions, I am aware that I should contact my doctor. Patient/Associate Merchant Signature: _ Date/Time: Relationship to Patient: Witness Name/Signature: Date/Time: [facility] 07-11-2023 Note Discharge Instructions Thank you for allowing [facility] to assist you with your healthcare needs. The following is important discharge information regarding your hospital visit. Your Care Team JAMESON MARTINEZ MD What to do next Scheduled Follow-Up Appointments Appointment Type When With Where Contact InformationPC Nurse Lab 10/05/2023 09[facility] 10/12/[facility]23 09:30 AM JAMESON HERRERA MD [facility] Eric Follow Up Appointments Follow Up with FELICITY NICHOLAS When Why: Let DR. Nicholas know if you are not doing better. Where: [address] [facility] [address] [place] [address] [phone] [facility] (1) The Following Activity and Diet Have Been Ordered for You Discharge Activity - Ordered -- NO activity restrictions, 07/11/23 8:39:00 EDT Discharge Diet - Ordered -- Follow the post-operative/post-procedure diet instructions provided by your physician's office., 07/11/23 8:39:00 EDT Allergies Doryx (Rash) sulfa drugs (Rash) Medications Please ask your primary doctor or pharmacist before taking any other medication not listed, including over the counter drugs, herbal medications, vitamins and or supplements as they may interact with your home medications. What How Much When Why Instructions Last Dose Unchanged aspirin (aspirin 81 mg oral delayed release tablet) 1 tab(s) by mouth Once a day Unchanged dilTIAZem (DilTIAZem (Eqv-Cardizem CD) 120 mg/ 24 hours oral capsule, extended release) 1 cap by mouth Two (2) times a day Unchanged fluticasone nasal (Flonase 50 mcg/ inh nasal spray) 2 spray(s) each nostril Once a day Allergic rhinitis, mild Duration: 90 Days Uses name brand Flonase Unchanged fluticasone nasal (fluticasone proprionate NASAL 50 mcg/ spray) 2 spray(s) each nostril Once a day (in the morning) Duration: 30 Days Unchanged hydroCHLOROthiazide (hydroCHLOROthiazide 25 mg oral tablet) 1 tab(s) by mouth Once a day Unchanged latanoprost ophthalmic (latanoprost 0.005% ophthalmic solution) 1 Drops Both eyes Daily at bedtime Unchanged losartan (losartan 100 mg oral tablet) 1 tab(s) by mouth Once a day Unchanged rosuvastatin (rosuvastatin 5 mg oral tablet) 1 tab(s) by mouth Every day Unchanged timolol ophthalmic (timolol hemihydrate 0.25% ophthalmic solution) 1 Drops Both eyes Two (2) times a day Please take this list to your next doctor s visit. Bring all medications you take, including over the counter medications, herbals and other supplements with you to your doctor s visit. Patients and families are reminded to discard old lists and to update any records with all medication providers or retail pharmacies. Education Materials Esophagogastroduodenoscopy This is an endoscopic procedure (a procedure that uses a device like a flexible telescope) that allows your caregiver to view the upper stomach and small bowel. This test allows your caregiver to look at the esophagus. The esophagus carries food from your mouth to your stomach. They can also look at your duodenum. This is the first part of the small intestine that attaches to the stomach. This test is used to detect problems in the bowel such as ulcers and inflammation. MEANING OF TEST Your caregiver will go over the test results with you and discuss the importance and meaning of your results, as well as treatment options and the need for additional tests if necessary. OBTAINING THE TEST RESULTS Your caregiver s office will call you with the results of the test. POST SEDATION INSTRUCTIONS Rest at home today. Since your coordination may be impaired, be cautious on stairways, do not drive any vehicle or operate any heavy machinery, or use any sharp instruments for the remainder of the day. Do not drink any alcoholic beverages or make any major decisions for 24 hours. POST PROCEDURE INSTRUCTIONS Progress slowly with full liquids then resume previous diet and medications. Belching or passing of gas is to be expected. Notify the physician if you have severe chest pain, fever, or if difficulty when swallowing persists. 01/08/14 Custom Esophageal Dilatation Esophageal dilatation, also called esophageal dilation, is a procedure to widen or open (dilate) a blocked or narrowed part of the esophagus. The esophagus is the part of the body that moves food and liquid from the mouth to the stomach. You may need this procedure if: You have a buildup of scar tissue in your esophagus that makes it difficult, painful, or impossible to swallow. This can be caused by gastroesophageal reflux disease (GERD). You have cancer of the esophagus. There is a problem with how food moves through your esophagus. In some cases, you may need this procedure repeated at a later time to dilate the esophagus gradually. Tell a health care provider about: Any allergies you have. All medicines you are taking, including vitamins, herbs, eye drops, creams, and pifp-bjs-rejetbj medicines. Any problems you or family members have had with anesthetic medicines. Any blood disorders you have. Any surgeries you have had. Any medical conditions you have. Any antibiotic medicines you are required to take before dental procedures. Whether you are or may be . What are the risks? Generally, this is a safe procedure. However, problems may occur, including: Bleeding due to a tear in the lining of the esophagus. A hole (perforation) in the esophagus. What happens before the procedure? Follow instructions from your health care provider about eating or drinking restrictions. Ask your health care provider about changing or stopping your regular medicines. This is especially important if you are taking diabetes medicines or blood thinners. Plan to have someone take you home from the hospital or clinic. Plan to have a responsible adult care for you for at least 24 hours after you leave the hospital or clinic. This is important. What happens during the procedure? You may be given a medicine to help you relax (sedative). A numbing medicine may be sprayed into the back of your throat, or you may gargle the medicine. Your health care provider may perform the dilatation using various surgical instruments, such as: ? Simple dilators. This instrument is carefully placed in the esophagus to stretch it. ? Guided wire bougies. This involves using an endoscope to insert a wire into the esophagus. A dilator is passed over this wire to enlarge the esophagus. Then the wire is removed. ? Balloon dilators. An endoscope with a small balloon at the end is inserted into the esophagus. The balloon is inflated to stretch the esophagus and open it up. The procedure may vary among health care providers and hospitals. What happens after the procedure? Your blood pressure, heart rate, breathing rate, and blood oxygen level will be monitored until the medicines you were given have worn off. Your throat may feel slightly sore and numb. This will improve slowly over time. You will not be allowed to eat or drink until your throat is no longer numb. When you are able to drink, urinate, and sit on the edge of the bed without nausea or dizziness, you may be able to return home. Follow these instructions at home: Take bkkv-gqa-uoisgia and prescription medicines only as told by your health care provider. Do not drive for 24 hours if you were given a sedative during your procedure. You should have a responsible adult with you for 24 hours after the procedure. Follow instructions from your health care provider about any eating or drinking restrictions. Do not use any products that contain nicotine or tobacco, such as cigarettes and e-cigarettes. If you need help quitting, ask your health care provider. Keep all follow-up visits as told by your health care provider. This is important. Get help right away if you: Have a fever. Have chest pain. Have pain that is not relieved by medication. Have trouble breathing. Have trouble swallowing. Vomit blood. Summary Esophageal dilatation, also called esophageal dilation, is a procedure to widen or open (dilate) a blocked or narrowed part of the esophagus. Plan to have someone take you home from the hospital or clinic. For this procedure, a numbing medicine may be sprayed into the back of your throat, or you may gargle the medicine. Do not drive for 24 hours if you were given a sedative during your procedure. This information is not intended to replace advice given to you by your health care provider. Make sure you discuss any questions you have with your health care provider. Document Released: 12/08/2006 Document Revised: 09/29/2018 Document Reviewed: 08/22/2018 [employer] Patient Education 2020 [employer] Monitored Anesthesia Care, Care After These instructions provide you with information about caring for yourself after your procedure. Your health care provider may also give you more specific instructions. Your treatment has been planned according to current medical practices, but problems sometimes occur. Call your health care provider if you have any problems or questions after your procedure. What can I expect after the procedure? After your procedure, you may: Feel sleepy for several hours. Feel clumsy and have poor balance for several hours. Feel forgetful about what happened after the procedure. Have poor judgment for several hours. Feel nauseous or vomit. Have a sore throat if you had a breathing tube during the procedure. Follow these instructions at home: For at least 24 hours after the procedure: Have a responsible adult stay with you. It is important to have someone help care for you until you are awake and alert. Rest as needed. Do not: ? Participate in activities in which you could fall or become injured. ? Drive. ? Use heavy machinery. ? Drink alcohol. ? Take sleeping pills or medicines that cause drowsiness. ? Make important decisions or sign legal documents. ? Take care of children on your own. Eating and drinking Follow the diet that is recommended by your health care provider. If you vomit, drink water, juice, or soup when you can drink without vomiting. Make sure you have little or no nausea before eating solid foods. General instructions Take gaal-iov-olsmqkf and prescription medicines only as told by your health care provider. If you have sleep apnea, surgery and certain medicines can increase your risk for breathing problems. Follow instructions from your health care provider about wearing your sleep device: ? Anytime you are sleeping, including during daytime naps. ? While taking prescription pain medicines, sleeping medicines, or medicines that make you drowsy. If you smoke, do not smoke without supervision. Keep all follow-up visits as told by your health care provider. This is important. Contact a health care provider if: You keep feeling nauseous or you keep vomiting. You feel light-headed. You develop a rash. You have a fever. Get help right away if: You have trouble breathing. Summary For several hours after your procedure, you may feel sleepy and have poor judgment. Have a responsible adult stay with you for at least 24 hours or until you are awake and alert. This information is not intended to replace advice given to you by your health care provider. Make sure you discuss any questions you have with your health care provider. Document Released: 02/06/2017 Document Revised: 01/15/2019 Document Reviewed: 02/06/2017 Elsevier Patient Education 2020 [employer] Additional Information VACCINATE! IT SAVES LIVES! Members of the community who have not yet received the COVID-19 vaccine and would like to receive it can visit one of [facility] vaccine clinics. There are many vaccine clinic locations within the [facility]. For locations and available times, please visit [email or web address] It is important to note that some COVID mobile vaccine clinics are held outdoors and may be canceled in rainy or stormy conditions. To learn more about pediatric vaccinations (ages 5-11), we invite you to visit the [employer] webpage. [email or web address]-Frequently-[email or web address] -Questions.html To learn more about the COVID-19 vaccine, we invite you to visit the CDC website for a list of frequently asked questions.https://www.cdc.gov/coronavi simon/2019-ncov/vaccines/faq.html [facility] Patient Portal Access Instructions: Stay connected with your healthcare team and access your personal medical information anytime with the [facility] Patient Portal. Please follow the directions below to create your [facility] account: 1.Access the email account you provided upon registration to the hospital/physician office.2.Look for an invitation email from [facility].3.Open the email and access the invitation link: Accept Invitation to [facility].4.Fill in the required herrera to create your account. To access your account, visit [email or web address]. Click the blue button labeled Access Patient Portal and then log in with the username and password that you created in the steps above. You will be able to view your test results, lab results, a summary of your visits, upcoming appointments and more. There is also a convenient messaging option where you can send secure messages to your provider. In addition, you will have the ability to download any documents or summaries to your computer and/or send the information securely to a physician. Remember that your healthcare information is confidential, so carefully consider who you will allow to register on the [facility] Patient Portal for access to your information. You can also access the [facility] Patient Portal on the [facility]. Simply click on Patient Portal and then log into your account. If you would like to receive a full copy of your medical records, please contact the [facility] Medical Records Department by calling [phone], Tuesday through Tuesday between 8 a.m. and 4:30 p.m. HOW TO SAFELY DISPOSE OF PRESCRIPTION MEDICATIONS Please use one of the following methods to safely dispose of your unused medications. 1.Use a drug disposal kit: the drug disposal pouch allows you to safely discard your old and unused drugs. Ask your nurse to give you one when you are discharged.2.Visit a local take-back location: Many local pharmacies and police departments have programs that collect old and unwanted prescription drugs. Call your local pharmacy or go to http://[place]/7P2Si4t to find one close to you.3.Make use of household items: Use cat litter or old coffee grounds to dispose medications if other options are not available. Mix your drugs with these household products, seal them in an airtight container and throw it into the garbage. Call [facility]: [phone] to be sure your drugs can be disposed of in this way. Some medicines may require a different approach.4.Never flush your medications down the toilet. IF YOU HAVE BEEN PRESCRIBED AN OPIOID FOR PAIN If you have been prescribed an opioid (such as hydrocodone, oxycodone or morphine), it is critical to understand the possible side effects and risks of opioid pain medications. Even when taken as directed, opioids can have several side effects including: Tolerance, meaning you might need to take more of a medication for the same pain relief. Nausea, vomiting and/or constipation. Sleepiness, dizziness, dry mouth, confusion, depression or itching. Physical dependence, meaning you have withdrawal symptoms when a medication is stopped, can develop within a few days. KNOW YOUR RESPONSIBILITIES It is important to know exactly how much and how often to take the opioid pain medications you are prescribed. Never take opioids in higher amounts or more often than prescribed. Do not combine opioids with alcohol or other drugs that cause drowsiness, such as benzodiazepines, also known as benzos, including diazepam and alprazolam, muscle relaxants or sleep aids. Never sell or share prescription opioids. This is illegal. Store opioids in a secure place and out of reach of others (including children, family, friends and visitors). The last page of this document has been signed and retained as a CHART COPY. Signatures Patient Education Materials 9 - AO Minor Esophagogastroduodenoscopy (01/11)(CUSTOM) Esophageal Dilatation Monitored Anesthesia Care, Care After Medication Leaflets My discharge plan and instructions have been reviewed and explained to me and I,ARUNA ESTRELLA understand my current condition and have read and understand these discharge instructions. I have received a written copy of the plan/instructions. If I have questions, I am aware that I should contact my doctor. Patient/Associate Merchant Signature: _ Date/Time: Relationship to Patient: Witness Name/Signature: Date/Time: [facility] 07-11-2023 Anesthesiology Consult note Patient: ARUNA ESTRELLA Age: 78 years Sex: Male : 1945 Associated Diagnoses: None Author: EDY DARBY APRN-RESIDENTIAL ENERGY AUDITOR Assessment Postanesthesia assessment Vitals: Vital signs from flowsheet : Vital Signs 07/11/2023 8:35 EDT Heart Rate Monitored 61 bpm bpm Respiratory Rate - Anes 14 br/min br/min 07/11/2023 8:30 EDT Heart Rate Monitored 66 bpm bpm Respiratory Rate - Anes 28 br/min br/min Systolic Blood Pressure Non-Invasive 118 mmHg mmHg Diastolic Blood Pressure Non-Invasive 72 mmHg mmHg 07/11/2023 8:25 EDT Heart Rate Monitored 61 bpm bpm Respiratory Rate - Anes 22 br/min br/min Systolic Blood Pressure Non-Invasive 131 mmHg mmHg Diastolic Blood Pressure Non-Invasive 63 mmHg mmHg 07/11/2023 8:20 EDT Heart Rate Monitored 64 bpm bpm Respiratory Rate - Anes 11 br/min br/min Systolic Blood Pressure Non-Invasive 146 mmHg mmHg Diastolic Blood Pressure Non-Invasive 65 mmHg mmHg 07/11/2023 7:27 EDT Temperature Temporal Artery 36.4 DegC Apical Heart Rate 57 bpm LOW Respiratory Rate 18 br/min Systolic Blood Pressure Non-Invasive 155 mmHg HI Diastolic Blood Pressure Non-Invasive 74 mmHg . Mental status: at preoperative baseline. Respiratory function: lungs are clear to auscultation, respirations are non-labored. Respiratory support: none. CV function: Normal rate. Cardiovascular support: none. Pain: Self-reports no pain, Post op control No intervention needed. Nausea status: denies nausea. Postoperative hydration status: within normal limits. Digitally Signed by EDY DARBY on 07/11/2023 08:36 AM [facility] 07-11-2023 Anesthesiology Consult note Patient: ARUNA ESTRELLA Age: 78 years Sex: Male : 1945 Associated Diagnoses: None Author: EDY DARBY Preoperative Information Anesthesia history Patient's history: negative. Family's history: negative. Health Status Allergies: Allergic Reactions (Selected) Severity Not Documented Doryx- Rash. Sulfa drugs- Rash., Allergies (2) ActiveReaction DoryxRash sulfa drugsRash Current medications: (Selected) Inpatient Medications Ordered LR 1,000 mL: 50 mL/hr, Intravenous Prescriptions Prescribed Flonase 50 mcg/inh nasal spray: 2 spray(s), Nostril, each, qDay, for 90 day(s), Uses name brand Flonase, 3 EA, 3 Refill(s) fluticasone proprionate NASAL 50 mcg/ spray: 2 spray(s), Nostril, each, qAM, for 30 day(s), 15.8 mL, 11 Refill(s) losartan 100 mg oral tablet: 100 mg, 1 tab(s), Oral, qDay, 90 tab(s), 3 Refill(s) rosuvastatin 5 mg oral tablet: 5 mg, 1 tab(s), Oral, Daily, 30 tab(s), 0 Refill(s) Documented Medications Documented DilTIAZem (Eqv-Cardizem CD) 120 mg/24 hours oral capsule, extended release: 120 mg, 1 cap(s), Oral, BID, 0 Refill(s) aspirin 81 mg oral delayed release tablet: 81 mg, 1 tab(s), Oral, qDay, 30 tab(s), 0 Refill(s) hydroCHLOROthiazide 25 mg oral tablet: 25 mg, 1 tab(s), Oral, qDay, 30 tab(s), 0 Refill(s) latanoprost 0.005% ophthalmic solution: 1 drop(s), Eyes, both, qHS, 2.5 mL, 0 Refill(s) timolol hemihydrate 0.25% ophthalmic solution: 1 drop(s), Eyes, both, BID, 10 mL, 0 Refill(s), Medications (1) Active Scheduled: (0) Continuous: (1) Lactated Ringers 1,000 mL 1,000 mL, Intravenous, 50 mL/hr PRN: (0) Problem list: Medical Allergic rhinitis / SNOMED CT 887748355 / Confirmed Atrial flutter / SNOMED CT 4485564 / Confirmed Mid back pain / SNOMED CT 155897353 / Confirmed Benign hypertension / SNOMED CT 35181393 / Confirmed BPH without obstruction/lower urinary tract symptoms / SNOMED CT 255808012 / Confirmed Bradycardia / SNOMED CT 16510246 / Confirmed Lower extremity cellulitis / SNOMED CT 4353742117 / Confirmed Right-sided low back pain with sciatica / SNOMED CT 946099710 / Confirmed Prostate cancer / SNOMED CT 0997360996 / Confirmed Morbid obesity / SNOMED CT 999868434 / Confirmed Pure hypercholesterolemia / SNOMED CT 693349808 / Confirmed Restless leg syndrome / SNOMED CT 12594673 / Confirmed Type 2 diabetes mellitus / SNOMED CT 485938298 / Confirmed, Active Problems (14) Allergic rhinitis Atrial flutter Benign hypertension BPH without obstruction/lower urinary tract symptoms Bradycardia Lower extremity cellulitis Mid back pain Morbid obesity Prostate cancer Pure hypercholesterolemia Restless leg syndrome Right-sided low back pain with sciatica Sleep apnea Type 2 diabetes mellitus Histories Past Medical History: No active or resolved past medical history items have been selected or recorded. Family History: Cancer Grandparent Breast cancer Mother () Hypertension Mother () Congestive heart failure Father () Diabetes Mother () Procedure history: History of right total knee replacement ([id number]) on 04/01/2014 at 69 Years. Comments: 08/07/2019 7:48 Fina Andrade LPN, Dr. Christa Total replacement of left knee joint ([id number]) on 07/30/2013 at 68 Years. Comments: 08/07/2019 7:48 Fina Andrade LPN [facility] Hernia ([id number]). Colonoscopy ([id number]). 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 Physical Examination No qualifying data available General: Alert and oriented. Airway: Normal temporomandibular joint mobility. Mallampati classification: II (soft palate, fauces, uvula visible). Dentition Evaluation: Dentures, lower, Dentures, upper. Respiratory: Lungs are clear to auscultation, Respirations are non-labored. Cardiovascular: Normal rate. Neurologic: Alert, Oriented. Review / Management Results review: No qualifying data available , Lab results 07/11/2023 7:27 EDT Belongings At Bedside Dentures, lower, Dentures, upper, Pants, Shirt, Shoes 07/11/2023 7:25 EDT Designated Person #1 We May Share [facility] [phone] Designated Person #1 Relationship Spouse Privacy Restrictions Requested None Status N/A Sensory Deficits None Diagnosed With Sleep Apnea Yes Infectious Disease Symptoms Patient states no symptoms Infectious Disease Recent Exposure No Alcohol and Drug Use No Employee of Institutional Living No Health Care Employee No History of Exposure to TB No History of Positive Chest X-Ray for TB No History of Positive TB Skin Test No Homeless No Known Immunosuppression No Recent Immigrant No Resident of Institutional Living No Bloody Sputum No Fatigue No Fever No Loss of Appetite No Night Sweats No Persistent Cough > 3 Weeks No Weight Loss No Barriers to Learning None evident Teaching Method Explanation Preferred Spoken Language Honduran Preferred Written Language Honduran Teaching Evaluation No further teaching needed Safety Brochure Information Reviewed Unable to complete [facility] Video Viewed No Information Given by Unable to obtain Patient's Current Physicians dr jameson martinez. Discharge To, Anticipated Home with family care Prev Test Positive/Diagnosis w/COVID-19 No Current Quarantine/Isolated any Illness No Any Contact with Sick Animals/Birds No Traveled Anywhere in Last 30 Days No Lost Weight Unintentionally Recently No Eat Poorly Due to Decreased Appetite No Total MST Score 0 N/A Personal Devices, Patient Valuables Dentures, lower, Dentures, upper Anesthesia/Transfusions None Admission Note-Nursing Same Day Patient History . Assessment and Plan [place] [employer] Anesthesiologists (ASA) physical status classification: Class IV. Anesthetic Preoperative Plan Anesthetic technique: MAC. Postoperative pain management: Per surgeon. Risks discussed: nausea, vomiting, sore throat, hypotension, allergic reaction, serious complications. Informed consent: signed by patient. Digitally Signed by EDY DARBY on 07/11/2023 07:39 AM [facility] 04-20-2023 Hospital Discharge instructions Patient Education 04/19/2023 22:48:31 Esophageal Foreign Body, Resolved Esophageal Blockage The esophagus is the passage that carries food from the mouth to the stomach. You had a blockage in the esophagus. This can happen after swallowing a large piece of food, taking a large pill, or swallowing foreign objects. If this is a recurring problem, it can be a sign of disease in the esophagus, such as inflammation (swelling and irritation) or scarring. If you did not have a special procedure (endoscopy) today to treat your condition, further testing will be needed to evaluate this problem. The blockage has cleared. You should be able to swallow normally again. Home care For the next 24 hours you may drink liquids and eat soft foods. You may have been given medicine today to prevent pain and help you relax. If so, you may feel drowsy for the next 4 [address] or operate dangerous equipment until you feel alert again. If your esophagus was blocked by food, be sure to cut solid food into small pieces before putting it into your mouth. Chew all foods well before swallowing. If your esophagus was blocked by an lmdf-bfo-babvuhf pill (such as a vitamin), avoid this size pill in the future. If it was blocked by a prescription medicine, ask your healthcare provider for another form of medicine. Follow-up care Follow up with your healthcare provider, or as advised. If you continue to have problems, contact your doctor or this facility for advice. If this is a recurring problem, talk with your healthcare provider about it. He or she may suggest having an endoscopy. This is a look in the esophagus with a small camera and light in a narrow, flexible tube. When to seek medical advice Call your healthcare provider right away if any of these occur: Unable to swallow Significant pain on swallowing Fever of 100.4 F (38 C) or higher, or as directed by your healthcare provider Call 911 Call 911 if any of the following occur: Chest pain or shortness of breath Vomiting blood (red or black) Blood in your stool (dark red or black color) [id number] [employer]. [address] [place] [address]. All rights reserved. This information is not intended as a substitute for professional medical care. Always follow your healthcare professional's instructions. Follow Up Care 04/19/2023 18:34:13 With:JAMESON MARTINEZ MD Address: [place] [address]- When:2-4 days [facility] 04-19-2023 Note Discharge Instructions Thank you for allowing [facility] to assist you with your healthcare needs. The following is important discharge information regarding your hospital visit. Diagnosis from Today's Visit Foreign body in throat What to Do Next Instructions from Your Care Team No qualifying data available. Post Acute Orders No qualifying data available. You Need to Schedule the Following Appointments Follow Up with JAMESON MARTINEZ MD When Within 2-4 days Where: [place] [address]- Allergies Doryx (Rash) sulfa drugs (Rash) Medications Please ask your primary doctor or pharmacist before taking any other medication not listed, including over the counter drugs, herbal medications, vitamins and or supplements as they may interact with your home medications. What How Much When Why Instructions Last Dose Unchanged amoxicillin-clavulanate (amoxicillin-clavulanate 875 mg-125 mg oral tablet) 1 tab(s) by mouth Every 12 hours Type 2 diabetes mellitus Prostate cancer Duration: 10 Days Unchanged aspirin (aspirin 81 mg oral delayed release tablet) 1 tab(s) by mouth Once a day Unchanged dilTIAZem (DilTIAZem (Eqv-Cardizem CD) 120 mg/ 24 hours oral capsule, extended release) 1 cap by mouth Two (2) times a day Unchanged fluticasone nasal (Flonase 50 mcg/ inh nasal spray) 2 spray(s) each nostril Once a day Allergic rhinitis, mild Duration: 90 Days Uses name brand Flonase Unchanged fluticasone nasal (fluticasone proprionate NASAL 50 mcg/ spray) 2 spray(s) each nostril Once a day (in the morning) Duration: 30 Days Unchanged hydroCHLOROthiazide (hydroCHLOROthiazide 25 mg oral tablet) 1 tab(s) by mouth Once a day Unchanged latanoprost ophthalmic (latanoprost 0.005% ophthalmic solution) 1 Drops Both eyes Daily at bedtime Unchanged losartan (losartan 100 mg oral tablet) 1 tab(s) by mouth Once a day Duration: 90 Days Unchanged mometasone (mometasone 220 mcg/ inh inhalation aerosol powder) 2 puff(s) by inhalation Two (2) times a day Unchanged simvastatin (simvastatin 20 mg oral tablet) 1 tab(s) by mouth Daily at bedtime Unchanged timolol ophthalmic (timolol hemihydrate 0.25% ophthalmic solution) 1 Drops Both eyes Two (2) times a day Please take this list to your next doctor s visit. Bring all medications you take, including over the counter medications, herbals and other supplements with you to your doctor s visit. Patients and families are reminded to discard old lists and to update any records with all medication providers or retail pharmacies. Education Materials Esophageal Blockage The esophagus is the passage that carries food from the mouth to the stomach. You had a blockage in the esophagus. This can happen after swallowing a large piece of food, taking a large pill, or swallowing foreign objects. If this is a recurring problem, it can be a sign of disease in the esophagus, such as inflammation (swelling and irritation) or scarring. If you did not have a special procedure (endoscopy) today to treat your condition, further testing will be needed to evaluate this problem. The blockage has cleared. You should be able to swallow normally again. Home care For the next 24 hours you may drink liquids and eat soft foods. You may have been given medicine today to prevent pain and help you relax. If so, you may feel drowsy for the next 4 [address] or operate dangerous equipment until you feel alert again. If your esophagus was blocked by food, be sure to cut solid food into small pieces before putting it into your mouth. Chew all foods well before swallowing. If your esophagus was blocked by an [id number] pill (such as a vitamin), avoid this size pill in the future. If it was blocked by a prescription medicine, ask your healthcare provider for another form of medicine. Follow-up care Follow up with your healthcare provider, or as advised. If you continue to have problems, contact your doctor or this facility for advice. If this is a recurring problem, talk with your healthcare provider about it. He or she may suggest having an endoscopy. This is a look in the esophagus with a small camera and light in a narrow, flexible tube. When to seek medical advice Call your healthcare provider right away if any of these occur: Unable to swallow Significant pain on swallowing Fever of 100.4 F (38 C) or higher, or as directed by your healthcare provider Call 911 Call 911 if any of the following occur: Chest pain or shortness of breath Vomiting blood (red or black) Blood in your stool (dark red or black color) [id number] [employer]. [address] [place] [address], [place] [address]. All rights reserved. This information is not intended as a substitute for professional medical care. Always follow your healthcare professional's instructions. Additional Information VACCINATE! IT SAVES LIVES! Members of the community who have not yet received the COVID-19 vaccine and would like to receive it can visit one of [facility] vaccine clinics. There are many vaccine clinic locations within the [facility]. For locations and available times, please visit [email or web address] It is important to note that some COVID mobile vaccine clinics are held outdoors and may be canceled in rainy or stormy conditions. To learn more about pediatric vaccinations (ages 5-11), we invite you to visit the [facility] webpage. [email or web address] -[email or web address] To learn more about the COVID-19 vaccine, we invite you to visit the CDC website for a list of frequently asked questions. https://www.cdc.gov/coronavirus/2019-n cov/vaccines/faq.html [employer] Patient Portal Access Instructions: Stay connected with your healthcare team and access your personal medical information anytime with the [employer] Patient Portal. If you would like a full copy of your medical records please contact the [facility] Medical Records Department Tuesday through Tuesday between 8a.m. and 4:30p.m. Please follow the directions below to access the portal: 1.Access the email account you provided upon registration to the hospital.2.Look for an invitation email from [facility].3.Open the email and access the invitation link: Accept Invitation to [employer].Fill in the required herrera to create your account. Sign into [email or web address] with your username and password that you created in the above steps to stay up to date. You can then view a summary of results, a summary of your visits, and the ability to download your summaries to your computer or send the information securely to a physician. Remember that your healthcare information is confidential, so carefully consider who you will allow to register on the [facility] Patient Portal for access to your information. You can also access the [facility] Patient Portal on the [employer] marcelino. Simply click on Health Records under Health Data and then click on the [employer] logo. HOW TO SAFELY DISPOSE OF PRESCRIPTION MEDICATIONS Please use one of the following methods to safely dispose of your unused medications. 1.Use a drug disposal kit: the drug disposal pouch allows you to safely discard your old and unused drugs. Ask your nurse to give you one when you are discharged.2.Visit a local take-back location: Many local pharmacies and police departments have programs that collect old and unwanted prescription drugs. Call your local pharmacy or go to http://bit.Carwow/0X2Zr3l to find one close to you.3.Make use of household items: Use cat litter or old coffee grounds to dispose medications if other options are not available. Mix your drugs with these household products, seal them in an airtight container and throw it into the garbage. Call [facility]: [phone] to be sure your drugs can be disposed of in this way. Some medicines may require a different approach.4.Never flush your medications down the toilet. IF YOU HAVE BEEN PRESCRIBED AN OPIOIDS FOR PAIN If you have been prescribed an opioid (such as hydrocodone, oxycodone or morphine), it is critical to understand the possible side effects and risks of opioid pain medications. Even when taken as directed, opioids can have several side effects including: Tolerance, meaning you might need to take more of a medication for the same pain relief. Nausea, vomiting and/or constipation. Sleepiness, dizziness, dry mouth, confusion, depression or itching. Physical dependence, meaning you have withdrawal symptoms when a medication is stopped ? this can develop within a few days. KNOW YOUR RESPONSIBILITIES It is important to know exactly how much and how often to take the opioid pain medications you are prescribed. Never take opioids in higher amounts or more often than prescribed. Do not combine opioids with alcohol or other drugs that cause drowsiness, such as benzodiazepines, also known as benzos, including diazepam and alprazolam, muscle relaxants or sleep aids. Never sell or share prescription opioids. This is illegal. Store opioids in a secure place and out of reach of others (including children, family, friends and visitors). The last page(s) of this document has been signed and retained as a CHART COPY Signatures Patient Education Materials Esophageal Foreign Body, Resolved Medication Leaflets My discharge plan and instructions have been reviewed and explained to me and IОЛЬГА MELVIN J understand my current condition and have read and understand these discharge instructions. I have received a written copy of the plan/instructions. If I have questions, I am aware that I should contact my doctor. Patient/Associate Merchant Signature: _ Date/Time: Relationship to Patient: Witness Name/Signature: Date/Time: [facility] 07-02-2021 Note HNO ID: [id number] Author: Martin Tovar MD Service: ? Author Type: Physician Type: Progress Notes Filed: 07/02/2021 5:51 PM Note Text: PRIMARY CARE PHYSICIAN: Jameson Martinez [address] [place] [address] REFERRING PHYSICIAN: Pete Bellamy MD ([facility]) [address] [address] Patient Care Team: Jameson Martinez MD as PCP - General ([facility]) Pete Bellamy as Specialty Medical Aides Teacher (Cardiology) Martin Gill V as Specialty Medical Aides Teacher (Internal Medicine) Harshil Roldan as Specialty Medical Aides Teacher (Urology) Ottoniel Sam as Specialty Medical Aides Teacher (Ophthalmology) CHIEF COMPLAINT: Evaluation of arrhythmia HISTORY OF PRESENT ILLNESS: Mr. Estrella is a 76 year old male who presents today with his and also a family friend for evaluation of arrhythmia. He has been followed by Dr. Bellamy at [facility]. He states the atrial fibrillation was diagnosed in about 1999. The arrhythmia is symptomatic, associated with palpitations, rapid heartbeats primarily. He states that the arrhythmia has resulted in ER visits about four times since 1999. The last two ER visits occurred in December 2020 (occurred after COVID19 vaccine) and about 2 weeks ago. He has never had a sustained episode that required electrical cardioversion however. 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 He states he cooled down, rehydrated and the episode stopped after about 30 minutes. He was previously treated with metoprolol, and most recently this was discontinued and treatment with diltiazem was initiated about 16 days ago he states. He states that since this change he has felt much better, with better heart rate (not a slope), better blood pressure, head clear and not as anxious and sleeps better. Overall he is very impressed with how well he feels off of the metoprolol and with the diltiazem medication. He states compliance with CPAP therapy, it is a nasal mask because the face mask does not fit properly. He states that he always has exertional shortness of breath since a child, and he was born with a lung issue. He states he is not treated with an oral anticoagulation drug for stroke prevention because of his lifestyle and occupation where injury or trauma is likely to occur on the farm. I have confirmed and edited as necessary, the PFSH and ROS obtained by others. 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) - At risk for stroke [id number] = 3 (HTN, age2) - Atrial flutter (HCC) - Bradycardia improved off the beta-ramone - Cardiomegaly - Concentric left ventricular hypertrophy - Essential hypertension - Mixed hyperlipidemia - PAF (paroxysmal atrial fibrillation) (HCC) symptomatic; diagnosed about 1999 - Palpitations - Prostate cancer (HCC) history of radiation therapy - Pure hypercholesterolemia - SVT (supraventricular tachycardia) (HCC) - Uncomplicated asthma PAST SURGICAL HISTORY Procedure Laterality Date - CYSTOSCOPY 01/14/2017 - PROSTATE BIOPSY 11/15/2016 - TOTAL KNEE REPLACEMENT Bilateral 07/30/2013 - UMBILICAL HERNIA REPAIR 5 OR OLDER 1997 SOCIAL HISTORY Social History Tobacco Use - Smoking status: Never Smoker - Smokeless tobacco: Never Used Substance Use Topics - Alcohol use: Never - Drug use: Never FAMILY HISTORY Problem Relation Age of Onset - Heart Failure Mother - Heart Attack Mother 85 - Breast Cancer Mother - Heart Failure Father - Prostate Cancer Father - No Known Problems Sister - Breast Cancer Daughter - No Known Problems Son ALLERGIES: ALLERGIES Allergen Reactions - Sulfa (Sulfonamide * Rash MEDICATIONS: latanoprost (XALATAN) 0.005 % ophthalmic solution Use 1 Drop in both eyes daily at bedtime. ASMANEX TWISTHALER 220 mcg/ actuation (60) aepb INHALE 1 PUFF 2 TIMES A DAY WITH GOOD ORAL CARE timoloL maleate (TIMOPTIC) 0.5 % ophthalmic solution INSTILL 1 DROP INTO BOTH EYES IN THE MORNING dilTIAZem CD (CARDIZEM CD, CARTIA XT) 120 mg 24 hr capsule Take 120 mg by mouth once daily. albuterol HFA (PROVENTIL HFA) 90 mcg/actuation inhaler Inhale 2 Puffs as instructed every 6 hours as needed for wheezing/shortness of breath. aspirin 81 mg chewable tablet Take 81 mg by mouth once daily. fluticasone (FLONASE ALLERGY RELIEF) 50 mcg/actuation nasal spray Use 1 [place] in each nostril once daily. hydroCHLOROthiazide (HYDRODIURIL, ESIDRIX) 25 mg tablet Take 25 mg by mouth once daily. losartan (COZAAR) 100 mg tablet Take 100 mg by mouth once daily. oxybutynin ER (DITROPAN XL) 10 mg 24 hr tablet Take 5 mg by mouth once daily. simvastatin (more content not included)... [facility] 07-02-2021 Instructions Martin Tovar MD - 07/02/2021 3:21 PM EDT Atrial Fibrillation What is atrial fibrillation? Atrial fibrillation (also called A-fib) is a fast or irregular heartbeat that starts in the upper chambers of the heart. The abnormal heartbeat affects the ability of the heart to pump blood to the rest of the body. What is the cause? An electrical signal in your heart starts each heartbeat, causing the heart muscle to squeeze (contract). Normally, this signal starts in the upper right chamber of the heart (the right atrium) at a place called the sinus node. The signal then follows normal pathways to the upper left atrium and to the lower chambers of the heart (the ventricles). When you have atrial fibrillation, electrical signals don t start in the normal place in the right atrium and don t travel normally. This can cause the upper chambers of the heart (atria) to beat very fast and not in a normal pattern. Common causes of heart rhythm problems are conditions that damage the heart, like coronary artery disease, heart attack, or heart failure. Problems with the heart valves are another common cause. The heart has 4 valves that open and close with each heartbeat to help blood flow in the right direction through the heart. Other causes of atrial fibrillation include: Health problems, such as a stroke, lung disease, diabetes, overactive thyroid gland, or high blood pressure Abuse of alcohol or drugs, such as cocaine Sometimes no cause can be found. What are the symptoms? Some people don t have any symptoms. When atrial fibrillation does cause symptoms, the most common ones are: Feeling like your heart is beating too fast or too hard or skipping beats or fluttering Feeling tired or weak all the time Symptoms that are more serious include: Chest pain Trouble breathing Lightheadedness or dizziness Confusion How is it diagnosed? Your healthcare provider will ask about your symptoms and medical history and examine you. Tests may include: An ECG (also called an EKG), which measures and records your heartbeat. You may have an ECG while you are resting or while you exercise on a treadmill. You may also be asked to wear a small portable ECG monitor for a few days or sometimes a couple weeks. Blood tests An echocardiogram, which uses sound waves (ultrasound) to show the structures of the heart, like the valves How is it treated? The goal of treatment is to help the heart keep a normal rhythm. Your treatment depends on the cause of the atrial fibrillation, how often you have symptoms, and the severity of your symptoms. If you have no symptoms, or your symptoms are fairly mild, you may not need treatment. For some people atrial fibrillation lasts just a short time and the heart goes back to a normal rhythm on its own. If you keep having spells of atrial fibrillation, treatment may help keep you from having so many spells. If a health problem like a leaky heart valve is causing the atrial fibrillation, treating the health problem may also treat the fast or irregular heartbeat. Other possible treatments are: Medicine: Your provider may prescribe medicine to slow or restore a normal heart rate and rhythm. You may also need medicine to prevent blood clots because when the heart beats irregularly, some of the blood can stay in the upper chambers too long. This makes it easier for blood clots to form, increasing your risk of having a stroke or heart attack. Electrical cardioversion: First, you will be given medicine called anesthesia to keep you from feeling pain during the procedure. Then your chest will be given an electrical shock. The electrical shock should make your heart start beating normally again. You may need medicine to keep your heart rhythm normal after this procedure. Ablation: Ablation is a procedure that uses a small tube called a catheter to deliver energy to the inside of the heart. The energy (usually radio waves) scars small areas of heart tissue. The scars block abnormal electrical pathways and help you have a normal heart rhythm. With some types of ablation treatment, you will also need a pacemaker. A pacemaker is an electronic device put under the skin of your chest to help control the heartbeat. How can I take care of myself? Take your medicines as prescribed. Keep your appointments for follow-up blood tests. Make sure your healthcare provider knows about changes in your diet or medical condition. Your provider also needs to know about all prescription and nonprescription medicines, herbs, or supplements that you are taking. Some medicines may interact with your heart medicine or increase your risk for atrial fibrillation. If you want to drink alcohol, ask your provider how much is safe for you to drink. Follow your healthcare provider's instructions. Ask your provider: ?How and when you will hear your test results ?How long it will take to recover ?What activities you should avoid and when you can return to your normal activities ?How to take care of yourself at home ?What symptoms or problems you should watch for and what to do if you have them Make sure you know when you should come back for a checkup. How can I help prevent atrial fibrillation? The best prevention is to have a heart-healthy lifestyle. Keep a healthy weight. Eat a healthy diet that is low in sodium and saturated and trans fat. Stay fit with the right kind of exercise for you. Decrease stress. Don t smoke. Limit your use of alcohol. If you have heart disease or high blood pressure, follow your healthcare provider's instructions for treatment. Developed by [employer]. Published by [employer]. Copyright 2014 [employer] and/or one of its subsidiaries. All rights reserved. documented in this encounter [facility] 07-02-2021 History of Present illness Narrative PRIMARY CARE PHYSICIAN: Jameson Martinez [address] [place] [address] REFERRING PHYSICIAN: Pete Bellamy MD ([facility]) [address] [address] Patient Care Team: Jameson Martinez MD as PCP - General (Family Practice) Pete Bellamy as Specialty Medical Aides Teacher (Cardiology) Martin Gill V as Specialty Medical Aides Teacher (Internal Medicine) Harshil Roldan as Specialty Medical Aides Teacher (Urology) Ottoniel Sam as Specialty Medical Aides Teacher (Ophthalmology) CHIEF COMPLAINT: Evaluation of arrhythmia HISTORY OF PRESENT ILLNESS: Mr. Estrella is a 76 year old male who presents today with his and also a family friend for evaluation of arrhythmia. He has been followed by Dr. Bellamy at [facility]. He states the atrial fibrillation was diagnosed in about 1999. The arrhythmia is symptomatic, associated with palpitations, rapid heartbeats primarily. He states that the arrhythmia has resulted in ER visits about four times since 1999. The last two ER visits occurred in December 2020 (occurred after COVID19 vaccine) and about 2 weeks ago. He has never had a sustained episode that required electrical cardioversion however. 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 He states he cooled down, rehydrated and the episode stopped after about 30 minutes. He was previously treated with metoprolol, and most recently this was discontinued and treatment with diltiazem was initiated about 16 days ago he states. He states that since this change he has felt much better, with better heart rate (not a slope), better blood pressure, head clear and not as anxious and sleeps better. Overall he is very impressed with how well he feels off of the metoprolol and with the diltiazem medication. He states compliance with CPAP therapy, it is a nasal mask because the face mask does not fit properly. He states that he always has exertional shortness of breath since a child, and he was born with a lung issue. He states he is not treated with an oral anticoagulation drug for stroke prevention because of his lifestyle and occupation where injury or trauma is likely to occur on the farm. I have confirmed and edited as necessary, the PFSH and ROS obtained by others. 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) At risk for stroke [id number] = 3 (HTN, age2) Atrial flutter (HCC) Bradycardia improved off the beta-ramone Cardiomegaly Concentric left ventricular hypertrophy Essential hypertension Mixed hyperlipidemia PAF (paroxysmal atrial fibrillation) (HCC) symptomatic; diagnosed about 1999 Palpitations Prostate cancer (HCC) history of radiation therapy Pure hypercholesterolemia SVT (supraventricular tachycardia) (HCC) Uncomplicated asthma PAST SURGICAL HISTORY Procedure Laterality Date CYSTOSCOPY 01/14/2017 PROSTATE BIOPSY 11/15/2016 TOTAL KNEE REPLACEMENT Bilateral 07/30/2013 UMBILICAL HERNIA REPAIR 5 OR OLDER 1997 SOCIAL HISTORY Social History Tobacco Use Smoking status: Never Smoker Smokeless tobacco: Never Used Substance Use Topics Alcohol use: Never Drug use: Never FAMILY HISTORY Problem Relation Age of Onset Heart Failure Mother Heart Attack Mother 85 Breast Cancer Mother Heart Failure Father Prostate Cancer Father No Known Problems Sister Breast Cancer Daughter No Known Problems Son ALLERGIES: ALLERGIES Allergen Reactions Sulfa (Sulfonamide * Rash MEDICATIONS: latanoprost (XALATAN) 0.005 % ophthalmic solution Use 1 Drop in both eyes daily at bedtime. ASMANEX TWISTHALER 220 mcg/ actuation (60) aepb INHALE 1 PUFF 2 TIMES A DAY WITH GOOD ORAL CARE timoloL maleate (TIMOPTIC) 0.5 % ophthalmic solution INSTILL 1 DROP INTO BOTH EYES IN THE MORNING dilTIAZem CD (CARDIZEM CD, CARTIA XT) 120 mg 24 hr capsule Take 120 mg by mouth once daily. albuterol HFA (PROVENTIL HFA) 90 mcg/actuation inhaler Inhale 2 Puffs as instructed every 6 hours as needed for wheezing/shortness of breath. aspirin 81 mg chewable tablet Take 81 mg by mouth once daily. fluticasone (FLONASE ALLERGY RELIEF) 50 mcg/actuation nasal spray Use 1 [place] in each nostril once daily. hydroCHLOROthiazide (HYDRODIURIL, ESIDRIX) 25 mg tablet Take 25 mg by mouth once daily. losartan (COZAAR) 100 mg tablet Take 100 mg by mouth once daily. oxybutynin ER (DITROPAN XL) 10 mg 24 hr tablet Take 5 mg by mouth once daily. simvastatin (ZOCOR) 20 mg tablet Take 20 mg by mouth daily at bedtime. REVIEW OF SYSTEMS: Review of Systems Constitutional: Negative for chills, fever and weight loss. Respiratory: Negative for cough, hemoptysis, sputum production and shortness of breath. Cardiovascular: Positive for palpitations and leg swelling. Negative for chest pain and PND. Gastrointestinal: Negative for abdominal pain, blood in stool, nausea and vomiting. Genitourinary: Negative for hematuria. Neurological: Negative for dizziness, sensory change, speech change and loss of consciousness. PHYSICAL EXAMINATION: BP 142/72 Pulse 64 Ht 6' 1 (1.85m) Wt 347 lb (157.4kg) SpO2 94% BMI 45.79 kg/(m^2). Physical Exam Vitals reviewed. Constitutional: General: He is not in acute distress. HENT: Head: Normocephalic and atraumatic. Cardiovascular: Rate and Rhythm: Normal rate and regular rhythm. Heart sounds: Normal heart sounds, S1 normal and S2 normal. No murmur heard. No friction rub. Pulmonary: Effort: Pulmonary effort is normal. No respiratory distress. Breath sounds: Normal breath sounds. No wheezing, rhonchi or rales. Abdominal: General: Bowel sounds are normal. Palpations: Abdomen is soft. Tenderness: There is no abdominal tenderness. Musculoskeletal: Cervical back: Neck supple. Right lower le+ Pitting Edema present. Left lower le+ Pitting Edema present. Skin: General: Skin is warm and dry. Neurological: General: No focal deficit present. Mental Status: He is alert and oriented to person, place, and time. Psychiatric: Mood and Affect: Mood normal. Thought Content: Thought content normal. CARDIOVASCULAR MEDICINE TESTING: Electrocardiogram: Sinus rhythm 61 bpm; borderline first-degree AV block (WV 200 ms); incomplete right bundle branch block (QRS 160 ms); nonspecific ST and T wave abnormality; QTc 410 ms I have personally reviewed the Electrocardiogram. ASSESSMENT/PLAN: 1. PAF (paroxysmal atrial fibrillation) ([facility]) - ICD9: 427.31, ICD10: I48.0 (primary diagnosis) 2. Atrial flutter, unspecified type ([facility]) - ICD9: 427.32, ICD10: I48.92 3. Palpitations - ICD9: 785.1, ICD10: R00.2 4. Concentric left ventricular hypertrophy - ICD9: 429.3, ICD10: I51.7 5. Obesity, Class III, BMI 40-49.9 (morbid obesity) ([facility]) - ICD9: 278.01, ICD10: E66.01 6. At risk for stroke - ICD9: V15.89, ICD10: Z91.89 7. At risk for bleeding associated with anticoagulants - ICD9: V15.89, ICD10: Z91.89 IMPRESSION: Mr. Estrella has symptomatic paroxysmal atrial fibrillation, also he has been evidently documented with some type of atrial flutter. I had a detailed discussion with Mr. Estrella regarding atrial arrhythmias (atrial fibrillation/flutter) and the management. I covered the cornerstones of management including rate control, rhythm control, stroke prevention and patient modifiable factors. The presence of severe left ventricular hypertrophy would contraindicate most of the antiarrhythmic drugs except amiodarone. So his antiarrhythmic drug therapy options are very limited. Furthermore, given that he gives a history of some type of chronic lung issue, I would be very keen to avoid amiodarone due to the potential for organ toxic side effects and even the specter of possible organ toxic side effects would be an issue every time his lung condition worsens. So management amiodarone for treatment of the atrial fibrillation would be quite challenging. We could consider atrial fibrillation catheter ablation, with the main challenges being the severe obesity. For now, he feels much better with the change made with the initiation of diltiazem and the discontinuation of the metoprolol. Perhaps at this point it is better to just continue with such treatment for now and keep in mind that we could consider a low to moderate risk (and moderately challenging) catheter ablation procedure in the future if medical therapy fails. Mr. Estrella was in agreement with this approach. 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 This is very reasonable, and I suppose we could consider him potentially a candidate for left atrial appendage closure device, such as the Watchman device. I provided him and his family with educational literature regarding atrial fibrillation, catheter ablation, and also the Watchman device. For now, we agreed that he would simply continue with the current plan of care and see how he does. PLAN AND RECOMMENDATIONS: Continue with current plan of care from EP standpoint. If he develops excessively bothersome symptoms from atrial arrhythmias refractory to medical therapy, consider amiodarone vs catheter ablation, with both options having potential challenges as outlined above. Return if symptoms worsen or fail to improve. He will continue to follow up with the [facility]. He will contact me in the future if he needs advice or repeat evaluation. Martin Tovar MD 07/02/2021 Medical Decision Making: Problems: Moderate: 1+ chronic illnesses with change Data: Unique source(s) for external note(s) reviewed: 2 Unique test result(s) reviewed: 3+ Unique test(s) ordered: 1 Risk: Moderate: Moderate risk from testing/treatment, Drug management and Decision on minor surgery w/ risk factors Medical Decision Making Level: 4 - Moderate documented in this encounter [facility] 07-02-2021 Nurse Note NO CARDIAC CONCERNS TODAY documented in this encounter [facility] Evaluation + Plan note Future Appointments Appointment Date:10/09/2021 01:15:00 PM Scheduled Provider:JAMESON MARTINEZ MD Location:[facility] Appointment Type:PC OV [facility] Evaluation + Plan note Future Appointments Appointment Date:04/16/2022 01:30:00 PM Scheduled Provider:JAMESON MARTINEZ MD Location:[facility] Appointment Type: OV [facility] Evaluation + Plan note Future Appointments Appointment Date:10/13/2022 09:00:00 AM Scheduled Provider:JAMESON MARTINEZ MD Location:[facility] Appointment Type: OV [facility] Evaluation + Plan note Future Appointments Appointment Date:10/13/2022 09:00:00 AM Scheduled Provider:JAMESON MARTINEZ MD Location:[facility] Appointment Type:PC OV Appointment Date:04/06/2023 09:00:00 AM Scheduled Provider: Location:[facility] Appointment Type:PC Nurse Lab Appointment Date:04/12/2023 09:30:00 AM Scheduled Provider:JAMESON MARTINEZ MD Location:[facility] Appointment Type: OV [facility] Evaluation + Plan note Future Appointments Appointment Date:10/05/2023 09:15:00 AM Scheduled Provider: Location:[facility] Appointment Type:PC Nurse Lab Appointment Date:10/12/2023 09:30:00 AM Scheduled Provider:JAMESON MARTINEZ MD Location:[facility] Appointment Type:PC OV Future Scheduled AmptcW0D Hemoglobin 10/13/23Lipid Profile 10/13/23Complete Metabolic Panel 10/13/23 [facility] Evaluation + Plan note Future Appointments Appointment Date:10/12/2023 09:30:00 AM Scheduled Provider:JAMESON MARTINEZ MD Location:[facility] Appointment Type:PC OV [facility] Narrative No data available for this section [facility] Hospital Discharge instructions No data available for this section [facility] Progress note No data available for this section [facility] Summary Purpose Family History No Family History Records Found No data available for this section No data available for this section No Family History Records Found Advance Directives No Advanced Directives Records FoundNo Advanced Directives Records Found Additional Source Comments Source Comments (unrecognize d section and content) In the event this informatio n is protected by the Federal Confidentiality of Alcohol and Drug Abuse Patient Records regulations: The Federal rules restrict any use of the information to criminally investigate or prosecute any alcohol or drug abuse patient.[facility] Reason for Visit (unrecogniz ed section and content) (unrecognized sect ion and content) No Status Records FoundNo Status Records Found INFORMATION SOURCE (unrecogn ized section and content) DATE CREATED AUTHOR AUTHOR'S ORGANIZ ATION 10/11/2023 [facility] Care Team (unrecognized sect ion and content) Personnel Name: JAMESON MARTINEZ MD Address: [address] [place] [address] [place] [address]- Personnel Name: JAMESON MARTINEZ MD Address: [address] [place] [address]- [place] Care Team Personnel Name: JAMESON MARTINEZ MD Position: P4 Physician - Primary Care Member Role: Primary Care Physician Address: Address: [address] [place] [address]- [place] Care Team Related Persons Name: VALERIY ESTRELLA Care Team Personnel Name: JAMESON MARTINEZ MD Position: P4 Physician - Primary Care Member Role: Primary Care Physician Address: Address: [address] [place] [address]- [place] Name: DANIELLE LOPEZ MD Position: Resident Member Role: Resident Address: Address: [address] [facility] [place] [address]- [place] Name: FernandezAbdoul RN Position: RN Member Role: ED RN Name: LINUS HUNTLEY DO Position: ED Physician Member Role: Attending Physician [facility]: [facility] [address] [place] [address]- [place] Care Team Related Persons Name: VALERIY ESTRELLA Care Team Personnel Name: JAMESON MARTINEZ MD Position: P4 Physician - Primary Care Member Role: Primary Care Physician Address: Address: [address] [place] [address]- Care Team Related Persons Name: VALERIY ESTRELLA Care Team Personnel Name: JAMESON MARTINEZ MD Position: P4 Physician - Primary Care Member Role: Primary Care Physician Address: Address: [address] [place] [address]- [place] Care Team Related Persons Name: VALERIY ESTRELLA Care Team (unrecognized sect ion and content) Care Team Personnel Name: JAMESON MARTINEZ MD Position: P4 Physician - Primary Care Member Role: Primary Care Physician Address: Address: [address] [place] [address]- [place] Care Team Related Persons Name: VALERIY ESTRELLA Care Team Personnel Name: JAMESON MARTINEZ MD Position: P4 Physician - Primary Care Member Role: Primary Care Physician Address: [facility] [address] [facility] [place] [address]- Care Team Related Persons Name: VALERIY ESTRELLA FOR RECORDS PERTAINING TO PATIENTS WHO ARE OR HAVE BEEN ENROLLED IN A CHEMICAL DEPENDENCY/SUBSTANCEABUSE PROGRAM, SOME INFORMATION MAY BE OMITTED. This clinical summary was aggregated from multiple sources. Caution should be exercised in using it in the provision of clinical care. This summary normalizes information from multiple sources, and as a consequence, information in this document may materially change the coding, format and clinical context of patient data. In addition, data may be omitted in some cases. CLINICAL DECISIONS SHOULD BE BASED ON THE PRIMARY CLINICAL RECORDS. [facility]. provides no warranty or guarantee of the accuracy or completeness of information in this document.
--- NOTE | 2024-01-05 07:28 | CT_ITS ---
HISTORY: SOB. TECHNIQUE: Helically acquired images were obtained of the chest without contrast. A radiation dose optimization technique was used for this scan. 919 images. COMPARISON: XR 12/16/2023. FINDINGS: LARGE AIRWAYS: Patent. LUNGS: Calcified granuloma along the right major fissure. 2 to 3 mm noncalcified right upper, right middle, and left upper lobe lobe nodules. Noncalcified lateral lower lobe nodules measuring up to 5 mm. Very mild atelectasis in the left lung base PLEURA: No pneumothorax or significant pleural effusion. HEART/PERICARDIUM: Heart within normal limits in size with mild coronary artery calcification. No pericardial effusion. VESSELS: Thoracic aorta nondilated. Mild atherosclerosis. MEDIASTINUM/ANSELMO: Multinodular thyroid with calcification on the left. No pathologically enlarged adenopathy. UPPER ABDOMEN: Unremarkable. BONES: Diffuse idiopathic skeletal hyperostosis. CT/Chest without Contrast IMPRESSION: Bilateral pulmonary nodules measuring up to 5 mm in the lower lobes. Consider optional CT follow-up in 12 months. Multinodular thyroid. Consider ultrasound correlation. Electronically Signed: Hiwot Quezada MD at 9:37 EST ,
== END | disposition home or self-care (01) ==
LOC: CT 07:22
PROVIDERS: PCP Family Medicine; Referring Provider Internal Medicine Pulmonary Disease; Visit Provider Internal Medicine Pulmonary Disease
DX: R06.02 Shortness of breath (principal); R05.9 Cough, unspecified; J45.30 Mild persistent asthma, uncomplicated
CPT/HCPCS: 71250

== ENCOUNTER → 2024-02-20 | Outpatient (CLI) | payer MEDICARE, SELFPAY ==
--- NOTE | 2024-02-20 13:29 | ECHOCS_ITS ---
Reason For Study: SOB Procedure This was a 2D Doppler, Color Flow transthoracic echocardiogram. Technically difficult study. Unable to perform left or right global longitudinal strain d/t poor image quality. Contrast injection was performed. Exam performed in department. Left Ventricle Normal LV size. The estimated ejection fraction is 60 %. Normal diastology for age. No regional wall motion abnormalities noted. Right Ventricle Normal RV size. Normal systolic function. Atria Normal left atrium. Normal right atrium. No doppler evidence for ASD. Mitral Valve There is no mitral valve stenosis. No mitral valve insufficiency. Tricuspid Valve There is no tricuspid stenosis. Trivial tricuspid valve insufficiency. Pulmonary artery systolic pressure is 40 mmHg. Aortic Valve Trisinus/trileaflet aortic valve. There is no aortic stenosis. No aortic valve insufficiency. Pulmonic Valve There is no pulmonic valvular stenosis. No pulmonic valve insufficiency. Great Vessels Normal aortic root. Pericardium/Pleural No pericardial effusion. Medication 22 gauge I.V. with prn adaptor inserted into right arm. Diluted definity 1.5ml given slow IV push to enhance endocardial definition. MMode/2D Measurements & Calculations LVIDd: 5.8 cm IVSd: 0.96 cm Ao root diam: 3.2 cm LVIDs: 3.8 cm LVPWd: 0.78 cm LA dimension: 3.7 cm RVDd: 4.3 cm FS: 33.5 % LAV(MOD-bp): 64.9 ml LVAd ap4: 34.7 cm2 SV(MOD-sp4): 61.7 ml LAV(MOD-bp) Indexed: 24.4 ml/m2 LVLd ap4: 9.5 cm LAV(MOD-sp2): 71.5 ml EDV(MOD-sp4): 103.8 ml LAV(MOD-sp4): 49.5 ml EDV(sp4-el): 107.8 ml LVAs ap4: 19.3 cm2 LVLs ap4: 7.6 cm ESV(MOD-sp4): 42.1 ml ESV(sp4-el): 41.9 ml EF(MOD-sp4): 59.4 % EF(sp4-el): 61.1 % SV(sp4-el): 65.9 ml LA A4 area: 18.0 cm2 RA A4 area: 19.3 cm2 TAPSE: 2.1 cm Time Measurements MV dec time: 0.26 sec Doppler Measurements & Calculations MV E max bryce: 41.0 cm/sec Lat Peak E' Bryce: 7.7 cm/sec Med Peak E' Bryce: 7.2 cm/sec MV A max bryce: 79.7 cm/sec E/E' lat: 5.3 E/E' med: 5.7 MV E/A: 0.51 MV V2 max: 86.7 cm/sec MV P1/2t max bryce: 66.3 cm/sec Ao V2 max: 108.5 cm/sec MV max P.0 mmHg MV P1/2t: 98.6 msec Ao max P.7 mmHg MV V2 mean: 34.3 cm/sec MV mean P.62 mmHg MV dec slope: 196.9 cm/sec2 MV V2 VTI: 23.8 cm MVA(P1/2t): 2.2 cm2 LV V1 max: 108.0 cm/sec PA V2 max: 88.1 cm/sec TR max bryce: 301.2 cm/sec LV V1 max P.7 mmHg TR max P.3 mmHg ECHO/Echo Complete W/ Contrast Interpretation Summary The estimated ejection fraction is 60 %. Trivial tricuspid valve insufficiency. Ordering Physician: Martin Gill V Referring Physician: Martin Gill V Performed By: Rayo Alonso RCS
== END | disposition home or self-care (01) ==
LOC: CVS 13:29
PROVIDERS: PCP Family Medicine; Referring Provider Internal Medicine Pulmonary Disease; Visit Provider Internal Medicine Pulmonary Disease
DX: R06.02 Shortness of breath (principal)
CPT/HCPCS: 93306; Q9957; A4216; C8929

== ENCOUNTER → 2024-03-30 | Outpatient (CLI) | payer MEDICARE, SELFPAY ==
[2024-03-30 16:18] LABS: Absolute Lymphocyte Count 1.14 X10^3/uL (0.83-4.51); Absolute Neutrophil Count 7.4 X10^3/uL (2.0-7.7); Basophil# 0.05 X10^3/uL; Basophil% 0.5 % (0-1); Eosinophil# 0.35 X10^3/uL; Eosinophils% 3.5 % (0-5); Hematocrit 43.2 % (40-54); Hemoglobin 14.2 g/dL (13.0-16.5); Lymphocyte # 1.14 X10^3/ul (0.83-4.51); Lymphocyte % 11.4 % (19-41); Mean Corp Hgb Conc 32.9 g/dL (32-36); Mean Corpuscular Hgb 29.3 pg (27.0-32.0); Mean Corpuscular Volume 89.3 fL (80-94); Mean Platelet Vol. 10.3 fl (6.2-12.0); Monocyte# 1.02 X10^3/uL; Monocyte% 10.2 % (0-10); NRBC Flagged by Analyzer 0 % (0-5); Neutrophil % 73.9 % (47-70); Platelet Count 305 K/mm3 (150-450); RBC Distribution Width CV 13.4 % (11.6-14.6); RBC Distribution Width SD 43.8 fl (35.1-43.9); Red Blood Count 4.84 M/mm3 (4.6-6.2)
[2024-03-30 16:29] LABS: Erythrocyte Sedimentation Rate 21 mm/hr (0-20)
[2024-03-30 16:56] LABS: Anion Gap 7 (5-15); BUN 16 mg/dL (7-18); BUN/Creat Ratio 20.8 RATIO (10-20); Calcium,Total 9.4 mg/dL (8.5-10.1); Chloride 109 mmol/L (98-107); Creatinine, Serum 0.77 mg/dL (0.70-1.30); EST Glomerular Filtration Rate 103 mL/min (>60); Est Glom Filt Rate - Afr Amer 125 mL/min (>60); Glucose 133 mg/dL (74-106); Potassium 3.9 mmol/L (3.5-5.1); Sodium Level 140 mmol/L (136-145)
== END | disposition home or self-care (01) ==
LOC: LAB 15:43
PROVIDERS: PCP Family Medicine; Referring Provider Physician Assistant; Visit Provider Physician Assistant
DX: T84.84XA Pain due to internal orthopedic prosthetic devices, implants and grafts, initial encounter (principal); I10 Essential (primary) hypertension
CPT/HCPCS: 36415; 80048; 85025; 85652; 86140

== ENCOUNTER 2024-06-10 16:03 | Emergency (ER) | payer MEDICARE, SELFPAY ==
[2024-06-10] VITALS (9 sets, daily range): BP systolic 154–193; BP diastolic 67–90; PULSE 86–93; RESP 20–39; TEMP 36.2–37.9; O2SAT 92–99
--- NOTE | 2024-06-10 16:29 | EKG12_ITS ---
Test Reason : Blood Pressure : / mmHG Vent. Rate : 090 BPM Atrial Rate : 090 BPM P-R Int : 170 ms QRS Dur : 102 ms QT Int : 346 ms P-R-T Axes : 045 010 050 degrees QTc Int : 423 ms Normal sinus rhythm Normal ECG Confirmed by SWETA WAY MD ([id number]), avid editor SIS MAGALLON ([id number]) on 06/11/2024 9:47:52 AM Referred By: Confirmed By:SWETA WAY MD
--- NOTE | 2024-06-10 16:39 | RAD_ITS ---
STUDY: X-RAY CHEST REASON FOR EXAM: Male, 79 years old. Dyspnea TECHNIQUE: PA and lateral COMPARISON: December 16, 2023 FINDINGS: There is minor discoid atelectasis or scarring at the left base.. There is no demonstrated pleural abnormality. Normal size heart. Normal mediastinum and shanice. Normal visualized pulmonary arteries. Mildly calcified aortic arch and descending thoracic aorta. Dorsal spine and shoulders demonstrate degenerative change. Normal visualized ribs, and clavicles. There is no demonstrated abnormality of the visualized soft tissue structures of the upper abdomen. RAD/Chest PA and Lateral IMPRESSION: Minor discoid atelectasis or scarring in left lower lobe. Electronically Signed: David Epperson MD at 17:04 EDT ,
[2024-06-10 16:42] LABS: Absolute Neutrophil Count 10.2 X10^3/uL (2.0-7.7); Basophil# 0.09 X10^3/uL; Basophil% 0.7 % (0-1); Eosinophil# 0.03 X10^3/uL; Eosinophils% 0.2 % (0-5); Hematocrit 40.5 % (40-54); Hemoglobin 12.9 g/dL (13.0-16.5); Mean Corp Hgb Conc 31.9 g/dL (32-36); Mean Platelet Vol. 10.2 fl (6.2-12.0); Monocyte# 1.58 X10^3/uL; Monocyte% 12.2 % (0-10); NRBC Flagged by Analyzer 0 % (0-5); Neutrophil # 10.23 X10^3/uL (2.7-7.7); Neutrophil % 79.1 % (47-70); POSITIVE DIFFERENTIAL YES; Platelet Count 342 K/mm3 (150-450); RBC Distribution Width CV 14.6 % (11.6-14.6); RBC Distribution Width SD 46.8 fl (35.1-43.9); White Blood Count 12.9 K/mm3 (4.4-11.0)
--- NOTE | 2024-06-10 16:46 | EDS_ITS ---
HPI History of Present Illness Chief Complaint: Confusion Detail of Chief Complaint: Patient presents in new symptom is confusion. He has multiple symptoms Informant: patient, spouse/S.O. and family Onset/Context/Timing Onset: Weeks (Confusion started approximately 3 weeks ago after he was prescribed Zanaflex.) and - (Over the past year to 1.5 years she has had a 40 pound unintentional weight loss) Context: - (Detailed HPI narrative) Timing: - (Detailed HPI narrative) Quality: Abdominal fullness with change in consistency of stool and HPI narrative Location: Memory, respiratory and GI Current Severity: HPI narrative Maximum Severity: HPI narrative Worsened by: Shortness of breath is worse with activity Relieved by: Nothing for nothing of his symptoms Associated Symptoms Associated Symptoms: Fever and chills past several days per son Narrative Narrative: Patient is an 79-year-old male. He has had an unintentional weight loss of 40 pounds over the past 1 to 1.5 years. He does complain of abdominal fullness. He had looser stools. He has not had black or maroon stool. He is not noted bright red blood or mucus in his diarrhea. He is not undergone a flexible sigmoidoscopy or colonoscopy in the past several years. He was unaware that he had swelling of his ankles. 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 He is on a thiazide diuretic. He denies orthopnea or PND. He denies chest discomfort of any type. Back pain started after he went to the physical therapist and was doing leg presses. He had a sudden snap and pain in his low back. He was seen at outside facility and prescribed Zanaflex. Since he was on the Zanaflex he has been confused. He has seen a chiropractor and the chiropractor recommended that he discontinue the Zanaflex, which he did. Patient does have history of BPH. He does endorse frequency and nocturia. He denies dysuria or hematuria. Per old records he has a history of prostate cancer. Some of his symptoms he is had for some time and the newer symptoms are the confusion and increased urination. Spouse and son also informing that has had fever and chills. His temperature was not taken, however. He reports compliance with his medication. Recent Illness/Hospitalization: Yes (Per HPI narrative) PFSH PFSH Medical History Concentric left ventricular hypertrophy Paroxysmal atrial flutter (01/08/21) Paroxysmal supraventricular tachycardia (2016) Asthma Obesity Osteoarthritis Prostate cancer Essential (primary) hypertension Paroxysmal atrial fibrillation Bradycardia, unspecified Hyperlipidemia Home Medications ?Medication ?Instructions ?Recorded ?Last Taken ?Type latanoprost 0.005 % eye drops 1 drp OP BID 11/30/16 Unknown History losartan 100 mg tablet 100 mg PO DAILY 11/30/16 01/14/17 07:00 History aspirin 81 mg tablet,delayed 81 mg PO QPM 02/24/18 Unknown History release (Adult Low Dose Aspirin) fluticasone propionate 50 2 spray intranasal QPM 90 days #48 07/14/23 Unknown History mcg/actuation nasal grams spray,suspension pantoprazole 40 mg tablet,delayed 40 mg PO DAILY 07/14/23 Unknown History release rosuvastatin 5 mg tablet 5 mg PO DAILY 07/14/23 Unknown History diltiazem HCl 120 mg 120 mg PO BID #180 caps 03/13/24 Unknown Rx capsule,extended release 24 hr dorzolamide 22.3 mg-timolol 6.8 1 drp ophthalmic (eye) BID 06/10/24 Unknown History mg/mL eye drops Allergy/AdvReac Type Severity Reaction Status Date / Time No Known Allergies Allergy Verified 07/14/23 13:09 Family History Father CHF (congestive heart failure) Mother CHF (congestive heart failure) Surgical History History of prostate biopsy (11/15/16) History of cystoscopy (01/14/17) History of umbilical hernia repair (1997) 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) Social History Smoking Status: Never smoker alcohol intake: never substance use type: does not use caffeine: No what type of physical activity do you participate in: weight training frequency: 3-4 times per week duration: 45-60 minutes/day seatbelt use: always do you feel safe at home: Yes ROS ROS ED Constitutional Constitutional ED: Reports chills, fever(s), subjective and weight loss; Denies sweats Eyes Eyes: Denies blurry vision, change in vision or diplopia ENT ENT ED: Denies ear pain, rhinorrhea or sore throat Cardiovascular Cardiovascular: Denies chest pain, orthopnea, palpitations, paroxysmal nocturnal dyspnea or racing heartbeat Respiratory/Chest Respiratory/Chest: Reports dyspnea and dyspnea on exertion; Denies cough, orthopnea or paroxysmal nocturnal dyspnea Gastrointestinal Gastrointestinal: Reports diarrhea; Denies abdominal pain, melena, nausea or vomiting Genitourinary Genitourinary ED: Reports urinary frequency; Denies dysuria or hematuria Musculoskeletal Musculoskeletal: Reports back pain; Denies arthralgias or myalgias Integumentary Denies Abrasions or rash Neurologic Neurologic: Reports weakness; Denies headache(s) or paresthesias Endocrine Endocrinology: Reports other Details: Patient states has had no appetite for the past 2 weeks. ; Denies cold intolerance, heat intolerance, polydipsia or polyphagia Hematologic/Lymphatic Hematologic/Lymphatic: Reports systems reviewed and no addt'l complaints, except as documented EXAM Physical Exam Const Vital Signs: 06/10/24 16:03 06/10/24 17:03 06/10/24 18:00 Temperature 97.2 F L 99.1 F 99.1 F Temperature Source Temporal Oral Oral Pulse Rate 88 91 92 Respiratory Rate 20 H 28 H 25 H Blood Pressure 193/85 H 165/87 H 175/78 H Blood Pressure Mean 121 113 110 Pulse Ox 99 96 92 Oxygen Delivery Method Room Air Room Air Room Air 06/10/24 19:00 06/10/24 20:00 06/10/24 21:00 Temperature 99.2 F H 100.2 F H 99.5 F H Temperature Source Oral Oral Oral Pulse Rate 86 88 92 Respiratory Rate 24 H 25 H 29 H Blood Pressure 160/82 H 154/85 H 161/86 H Blood Pressure Mean 108 108 111 Pulse Ox 97 93 94 Oxygen Delivery Method Room Air Room Air Room Air Positive well nourished and well developed Constitutional Narrative: Patient is tachypneic and breathing quicker than 20 times a minute. Per my observation he is breathing 25 times a minute. There is no use of accessory muscles and no retractions. General Appearance ED: well developed, NAD and pallor HEENT Reports dry mucous membranes HEENT Narrative: Posterior pharynx is normal. Uvula is midline. There is no deviation with protrusion. Ears are normal. Nares are patent. Mouth ED: Yes dry mucous membranes Mouth: dry mucous membranes Eyes PERRL and EOMs intact bilaterally Neck no lymphadenopathy, supple and no JVD Chest Wall inspection of chest normal and palpation of chest normal Resp normal respiratory effort and clear to auscultation bilaterally Resp Narrative: Patient is tachypneic. Effort and Inspection: Negative for retractions Auscultation: Negative for diminished lung sounds Cardio regular rate, regular rhythm, S1 normal heart sound and S2 normal heart sound GI non-tender, non-distended and no masses; Negative for normal to inspection, nondistended, normoactive bowel sounds or hepatosplenomegaly Inspection: Negative for abdominal distention Auscultation: hyperactive bowel sounds Palpation: soft; Negative for tender Back/Spine no CVA tenderness Extremity Extremity Narrative: Negative straight leg test right and left. Patient does have pitting edema in the lower extremities. EHLs intact. 5 or 5 strength with plantar and dorsiflexion of his foot. Gait was not tested. Patient denied foot drop. Patient denies buckling of his right or left knee going up steps into the house. Neuro oriented x3 and CN's II-XII intact bilaterally Sensorium / Orientation: alert Motor Exam: strength 5/5 throughout and general weakness Psych mental status grossly normal Skin no rashes or lesions noted, no wounds and skin turgor normal General Skin Exam: pallor; Negative for jaundice MDM MDM MDM Narrative Medical decision making narrative: Differential is broad. With him complaint of fever and chills need to evaluate for infectious cause. With history of prostate cancer and urinary symptoms need to rule out UTI, versus enlarged prostate with overflow issues. With history of prostate cancer and unintentional weight loss need to evaluate for possible metastasis/malignancy. Since patient is tachypneic we will need to entertain possibility of PE. With him complaining of pedal edema this may represent heart failure exacerbation. However there are no rales noted on auscultation. He also may be anemic since he does appear pale but his conjunctive is not. History & Record Review Additional record(s) reviewed:: Prior outpatient record, Prior ED visit and Prior labs Lab Data Attestation: I reviewed the patient's lab results. Lab results narrative: White count is elevated 12.9 thousand with slight shift. Hemoglobin is slightly below normal at 12.9. Indices are normal. AST and ALT are 170 298. Alkaline phosphatase elevated 159. Calcium is normal. Albumin is low at 2.0. D-dimer is elevated at 168. Since there is no abnormal pathology other than discoid atelectasis which raises concern for PE will obtain CTA of the chest. There are no prior labs to compare AST, ALT or alkaline phosphatase. Labs: Laboratory Results - last 24 hr 06/10/24 06/10/24 06/10/24 16:33 17:06 21:03 WBC 12.9 H RBC 4.60 Hgb 12.9 L Hct 40.5 MCV 88.0 MCH 28.0 MCHC 31.9 L RDW Std Deviation 46.8 H RDW Coeff of Gabe 14.6 Plt Count 342 MPV 10.2 Immature Gran % (Auto) 0.800 Neut % (Auto) 79.1 H Lymph % (Auto) 7.0 L Graham % (Auto) 12.2 H Eos % (Auto) 0.2 Baso % (Auto) 0.7 Absolute Neuts (auto) 10.2 H Absolute Lymphs (auto) 0.90 Nucleated RBC % 0 Differential Comment SCANNED Diff Path Review May foll D-Dimer Quant (PE/DVT) 1.68 H* Sodium 136 Potassium 3.9 Chloride 104 Carbon Dioxide 27.0 Anion Gap 5 BUN 16 Creatinine 0.80 Est GFR (MDRD) Af Amer 120 Est GFR (MDRD) Non-Af 99 BUN/Creatinine Ratio 20.0 Glucose 159 H Lactic Acid 2.0 1.1 Calcium 9.6 Total Bilirubin 0.70 AST 107 H ALT 298 H Alkaline Phosphatase 159 H Troponin I High Sens 5 Total Protein 6.6 Albumin 2.0 L Globulin 4.6 H Albumin/Globulin Ratio 0.4 L Urine Color Gabriella Urine Clarity Cloudy Urine pH 6.0 Ur Specific [place] 1.020 Urine Protein 15 H Urine Glucose (UA) Normal Urine Ketones Negative Urine Occult Blood Negative Urine Nitrite Negative Urine Bilirubin 1 H Urine Urobilinogen 8 H Ur Leukocyte Esterase 25 H Urine RBC 0 SEEN Urine WBC 0-5 SEEN Ur Squamous Epith Cells 0-5 SEEN Ur Transition Epith Cell 0-5 SEEN Ur Renal Epithelial Cell 0-5 SEEN Urine Bacteria 3+ Urine Mucus 2+ Urinalysis macro is positive for protein bilirubin and urobilinogen. Of note b ilirubin was normal on the liver panel. Micro reveals 0 RBCs, 0-5 WBCs and 0-5 epithelial cells. There is renal epithelial cells noted and 3+ bacteria. Patient has been complaining of frequency. This may be reason for his UA not being positive for leukoesterase and no evidence of pyuria. Will obtain urine culture. Radiography Chest X-Ray - ED: 2 View and Read by ED Physician (Cardiac silhouette size normal. There is evidence of discoid atelectasis left lower lobe. There is no infiltrate or evidence of congestive heart failure. Hilum is normal. Osseous structures unremarkable. This independent reviewed interpreted by me at 1700) Diagnostic Testing: Clinical Impression(s) from Imaging Studies Chest X-Ray 06/10/24 16:39 IMPRESSION: Minor discoid atelectasis or scarring in left lower lobe. Electronically Signed: David Epperson MD at 17:04 EDT , Chest CTA 06/10/24 17:08 IMPRESSION: ASHD. Mild subsegmental atelectasis left lower lobe and old granulomatous disease.. No evidence for pulmonary embolus Electronically Signed: David Epperson MD at 18:11 EDT Reading Location ID and State: [place] / [place] Tel [phone], Service support , Abdomen/Pelvis CT 06/10/24 19:09 IMPRESSION: Findings consistent with acute diverticulitis of the distal descending colon at the junction of sigmoid demonstrating peridiverticular abscess measuring approximately 5.4 x 3.6 cm. Other findings as above Electronically Signed: David Epperson MD at 20:29 EDT , ADDENDUM: 06/10/242044 IMPRESSION: Findings consistent with acute diverticulitis of the distal descending colon at the junction of sigmoid demonstrating peridiverticular abscess measuring approximately 5.4 x 3.6 cm. Other findings as above N.B. : The above Results were Read Back by David Epperson MD to Nadir Kellogg MD, and understanding confirmed on 06/10/2024 20:38:11 (ET). Electronically Signed: David Epperson MD at 20:29 EDT , EKG Initial EKG: Attestation: I personally reviewed and interpreted this EKG as follows: Interpretation: Sinus Rhythm (Rate is 90. The EKG is normal. GA interval is 170 ms. QT is 346 ms. QRS duration 102 ms. [place] is normal.) Management Discussion w/another healthcare provider: Technology Sales Specialist (General surgeon Dr. Miller who states this needs IR. Our IR radiologist is out until June 23. In light of this he recommends transfer.) and Radiologist (Dr. Epperson the radiologist called me. Patient has diverticulitis with a 3 x 5 cm abscess. He was told that patient predominately has urinary symptoms. He states this makes sense since he has a redundant colon with the inflamed portion adjacent to the bladder.) Treatment and Re-Evaluation :: Patient was informed of CAT scan results. He appears pale. He is tachypneic. He is not tachycardic. He is not hypoxic at this time. He looks worse than when he presented. Since he is tachypneic with elevated white count and bacteria with frequency will treat as complicated UTI. His lactate was borderline. He was medicated with Dilaudid for his back pain. Comments:: Patient's history physical and findings were reviewed with Dr. Paulino. He requested a CT of the abdomen pelvis without contrast. This was ordered. In light of the evidence of diverticulitis with abscess will treat with Zosyn even though he has been given Rocephin since initially the thought was that he had a urinary tract infection. Patient's most recent temperature is 100.2. Patient is septic from this. He does not appear well. He appears slightly pale. He is breathing 30 times a minute. In light of patient urine results need to entertain possibility of enterocystoscopy fistula Spoke with Dr. Marie at [facility]. He requested admission to medical service possibly ICU. Spoke with the transfer nurse. She will start with the hospitalist. Spoke with Dr. Kavon Dunlap the hospitalist. Patient be admitted to stepdown unit. Will be admitted to medicine with consult to surgery and IR Critical Care Time Critical Care Time: Yes Critical care time (excluding procedures): 30-74 minutes (32), Including time spent: (History, physical, documentation, independent interpretation of laboratory results and imaging, treatment for sepsis), Discussing w/Patient &/or Family/Complementary Health Therapists (Discussion with patient, spouse, multiple family members), Discussing w/Consultants (Hospitalist, surgeon) and Arranging Admission or Transfer Discharge Plan Triage Chief Complaint: Confusion ED Provider: Nadir Kellogg Dx/Rx/DC Orders Clinical Impression: Acute diverticulitis, Hyperlipidemia, Essential (primary) hypertension, Prostate cancer, Paroxysmal atrial fibrillation, Diverticulitis of intestine with abscess, Bacteriuria, Sepsis without acute organ dysfunction Prescriptions: No Action aspirin [Adult Low Dose Aspirin] 81 mg tablet,delayed release (DR/EC) 81 mg PO QPM fluticasone propionate 50 mcg/actuation spray,suspension 2 spray INTRANASAL QPM 90 Days Qty: 48 Patient Comments: USE 2 SPRAYS IN EACH NOSTRIL DAILY pantoprazole 40 mg tablet,delayed release (DR/EC) 40 mg PO DAILY Patient Comments: TAKE 1 TABLET BY MOUTH EVERY DAY rosuvastatin 5 mg tablet 5 mg PO DAILY Patient Comments: TAKE 1 TABLET BY MOUTH EVERY DAY latanoprost 2.5 ML drops 1 drp OP BID losartan 100 MG tablet 100 mg PO DAILY dorzolamide-timolol 22.3-6.8 mg/mL drops 1 drp ophthalmic (eye) BID diltiazem HCl 120 mg capsule,extended release 24hr 120 mg PO BID Qty: 180 3RF Primary Care Provider: Jameson Hanson Referrals: Jameson Hanson MD [Primary Care Provider] - Print Language: Malay Disposition Disposition: Acute Care Hospital Discharge Location: [facility]
[2024-06-10 16:54] LABS: Differential Indicated SCAN CRITERIA MET
[2024-06-10 16:56] LABS: D-Dimer Quantitative (DVT/PE) 1.68 FEU/ug/m (0.27-0.49)
[2024-06-10 17:01] LABS: ALB/GLOB Ratio 0.4 RATIO (0.9-2.4); AST(SGOT) 107 U/L (15-37); Alanine Aminotransfer ALT/SGPT 298 U/L (16-61); Alkaline Phosphatase 159 U/L (45-117); Anion Gap 5 (5-15); BUN 16 mg/dL (7-18); Calcium,Total 9.6 mg/dL (8.5-10.1); Chloride 104 mmol/L (98-107); EST Glomerular Filtration Rate 99 mL/min (>60); Est Glom Filt Rate - Afr Amer 120 mL/min (>60); Globulin 4.6 g/dL (2.2-4.2); Glucose 159 mg/dL (74-106); Potassium 3.9 mmol/L (3.5-5.1); Protein, Total 6.6 g/dL (6.4-8.2); Sodium Level 136 mmol/L (136-145); Troponin-I HS 5 pg/mL (3.0-78.0)
--- NOTE | 2024-06-10 17:08 | CT_ITS ---
STUDY: CTA CHEST REASON FOR EXAM: Male, 79 years old. DYSPNEA,TACHYPNEA,ELEVATED D-DIMER, HX OF PROSTATE CANCER RADIATION DOSAGE (If Supplied By Facility): CTDIvol = ( 28.2 ) mGy, DLP = ( 797.11 ) mGycm TECHNIQUE: The examination was performed with the intravenous administration of IV 100mL [id number]-370. Post-processing of the angiographic images was performed, with multiplanar reformation and 3D reconstruction. Individualized dose optimization techniques were used for this CT. COMPARISON: January 15, 2024 FINDINGS: Normal enhancement of the main pulmonary artery and right and left pulmonary arteries. Normal enhancement of the bilateral peripheral pulmonary arteries. There is no demonstrated pulmonary embolism. Minor atherosclerotic change of the aorta without evidence for aneurysm. There is no demonstrated aortic dissection. Normal heart and pericardium. No appreciable coronary artery calcification Normal mediastinum. Normal hilar regions. Normal visualized trachea and bronchi. The lungs are well expanded. Mild subsegmental atelectasis in left lower lobe. Tiny calcified granuloma in the right upper lobe Normal pleura. Normal chest wall structures. Dorsal spine demonstrates changes of dish. Normal visualized upper abdomen. CT/CTA Chest W/WO Contrast IMPRESSION: ASHD. Mild subsegmental atelectasis left lower lobe and old granulomatous disease.. No evidence for pulmonary embolus Electronically Signed: David Epperson MD at 18:11 EDT ,
[2024-06-10 17:11] LABS: Red Blood Cells-Urine 0 SEEN /hpf (0-5)
[2024-06-10 17:15] LABS: Color, Urine Amber (Yellow); Glucose, Dipstick Normal (Normal); Ketone-Dipstick Negative (Negative); Leukocyte Esterase-Dipstick 25 /ul (Negative); Nitrite-Dipstick Negative (Negative); Occult Blood-Urine Negative /ul (Negative); Protein-Dipstick 15 mg/dl (Negative); Urine Clarity Cloudy (Clear); Urine Urobilinogen 8 mg/dl (Normal)
[2024-06-10 17:18] LABS: Differential Comment SCANNED
[2024-06-10 17:21] LABS: Urine Bilirubin Dipstick 1 mg/dL (Negative)
[2024-06-10 17:22] LABS: Bacteria 3+ /hpf (None Seen); Mucous, Urine 2+ /hpf (<or=2+); White Blood Cells 0-5 SEEN /hpf (0-5)
[2024-06-10 17:24] LABS: Renal Epithelial Cells 0-5 SEEN /hpf (0-5); Squamous Epithelial Cells - UA 0-5 SEEN /hpf (0-5)
[2024-06-10 17:25] LABS: Transitional Epithelial - Ur 0-5 SEEN /hpf (0-5)
[2024-06-10] MEDS: Ceftriaxone 1 GM/50 ML BAG IV (18:03)
--- NOTE | 2024-06-10 19:09 | CT_ITS ---
We are attempting to reach an attending provider to discuss findings. An addendum with communication details will be sent when the communication is complete. STUDY: CT ABDOMEN AND PELVIS WITHOUT CONTRAST REASON FOR EXAM: Male, 79 years old. LEUKOCYTOSIS RADIATION DOSAGE (If Supplied By Facility): CTDIvol = ( 29.02 ) mGy, DLP = ( 1595.16 ) mGycm TECHNIQUE: Transaxial images were obtained from the dome of the diaphragm to the symphysis pubis without oral contrast, and without intravenous contrast. Sagittal and coronal images were reconstructed. Individualized dose optimization techniques were used for this CT. COMPARISON: None. FINDINGS: The visualized lung bases are unremarkable. The visualized portions of the heart are within normal limits. There is prominence of the right lobe of the liver which is normal developmental variant. There is homogeneous attenuation without mass or bile duct dilatation. Normal gallbladder and extrahepatic biliary system. Normal spleen. Normal pancreas. Normal bilateral adrenal glands. Normal right kidney. [The left kidney is not obstructed. There is a cortical and small parapelvic cysts which will not require additional imaging. Normal visualized stomach. Normal small intestine. There is markedly thickened romero of the distal descending colon with narrowing of the lumen secondary to acute diverticulitis without peridiverticular abscess measuring 5.4 x 3.6 cm No evidence for acute appendicitis Atherosclerotic changes of the aorta without evidence for aneurysm. Normal inferior vena cava. Normal retroperitoneum. Bladder is mildly distended and there appears to be narrowing of the prostatic urethra containing contrast.. There are radiation seeds noted within the prostate Normal abdominal wall. Lumbar spine demonstrates degenerative change CT/Abdomen/Pelvis without Cont IMPRESSION: Findings consistent with acute diverticulitis of the distal descending colon at the junction of sigmoid demonstrating peridiverticular abscess measuring approximately 5.4 x 3.6 cm. Other findings as above Electronically Signed: David Epperson MD at 20:29 EDT ,
[2024-06-10] MEDS: HYDROmorphone 0.5 MG/0.5 ML SYRINGE IV ×2 (19:20→23:20)
[2024-06-10 20:38] LABS: Reflex Lactate? Y
[2024-06-10] MEDS: Piperacil/Tazobactam 4.5 GM in 0.9% Normal Saline (100mL MB+) 100 ML IV (21:02)
[2024-06-10 21:38] LABS: Lactic Acid 1.1 mmol/L (0.4-1.9)
[2024-06-10] MEDS: dilTIAZem CD 120 MG Capsule PO (23:21)
[2024-06-11] VITALS: BP 139/76; PULSE 88; RESP 27; TEMP 37.5; O2SAT 94
[2024-06-11 00:16] VITALS: BP 139/76; PULSE 88; RESP 27; TEMP 37.5; O2SAT 94
[2024-06-11 01:00] VITALS: BP 156/78; PULSE 85; RESP 31; TEMP 37.3; O2SAT 94
[2024-06-11 02:00] VITALS: BP 146/72; PULSE 88; RESP 30; TEMP 37.5; O2SAT 93; O2SAT 94
[2024-06-11] MEDS: HYDROmorphone 0.5 MG/0.5 ML SYRINGE IV (02:26)
[2024-06-11 15:48] LABS: Pathologist Review Reviewed
== END 2024-06-11 03:11 | disposition short-term general hospital (02) ==
PROVIDERS: Emergency Provider Emergency Medicine; PCP Family Medicine; Visit Provider Emergency Medicine
DX: K57.92 Diverticulitis of intestine, part unspecified, without perforation or abscess without bleeding (principal); A41.9 Sepsis, unspecified organism; I50.9 Heart failure, unspecified; I11.0 Hypertensive heart disease with heart failure; I48.0 Paroxysmal atrial fibrillation; C61 Malignant neoplasm of prostate; E78.5 Hyperlipidemia, unspecified; R82.71 Bacteriuria; J45.909 Unspecified asthma, uncomplicated; Z79.82 Long term (current) use of aspirin; Z79.899 Other long term (current) drug therapy
CPT/HCPCS: 71046; 71275; 74176; 80053; 81001; 83605; 84484; 85025; 85379; 87040; 87086; 93005; 96365; 96366; 96367; 96375; 96376; 99285; J7050; Q9967; A4216